=== PATIENT | male | born 1955 | race Caucasian/White ===

== ENCOUNTER → 2023-08-08 | Outpatient (BNV) | payer MEDICARE, MEDICAID, SELFPAY | PROVIDERS: Visit Provider Internal Medicine Nephrology | DX: N18.6 End stage renal disease (principal) | CPT/HCPCS: 90962 ==

== ENCOUNTER → 2023-09-06 | Outpatient (BNV) | payer MEDICARE, MEDICAID, SELFPAY | PROVIDERS: Visit Provider Internal Medicine Nephrology | DX: N18.6 End stage renal disease (principal) | CPT/HCPCS: 90961 ==

== ENCOUNTER → 2023-10-07 | Outpatient (BNV) | payer MEDICARE, MEDICAID, SELFPAY | PROVIDERS: Visit Provider Internal Medicine Nephrology | DX: N18.6 End stage renal disease (principal) | CPT/HCPCS: 90962 ==

== ENCOUNTER → 2023-11-06 | Outpatient (BNV) | payer OTHER, SELFPAY | PROVIDERS: Visit Provider Internal Medicine Nephrology | DX: N18.6 End stage renal disease (principal) | CPT/HCPCS: 90961 ==

== ENCOUNTER → 2023-12-07 | Outpatient (BNV) | payer OTHER, SELFPAY | PROVIDERS: Visit Provider Internal Medicine Nephrology | DX: N18.6 End stage renal disease (principal) | CPT/HCPCS: 90960 ==

== ENCOUNTER → 2024-01-06 | Outpatient (BNV) | payer OTHER, SELFPAY | PROVIDERS: Visit Provider Internal Medicine Nephrology | DX: N18.6 End stage renal disease (principal) | CPT/HCPCS: 90962 ==

== ENCOUNTER → 2024-02-06 | Outpatient (BNV) | payer OTHER, SELFPAY | PROVIDERS: Visit Provider Internal Medicine Nephrology | DX: N18.6 End stage renal disease (principal) | CPT/HCPCS: 90962 ==

== ENCOUNTER → 2024-03-08 | Outpatient (BNV) | payer OTHER, SELFPAY | PROVIDERS: Visit Provider Internal Medicine Nephrology | DX: N18.6 End stage renal disease (principal) | CPT/HCPCS: 90961 ==

== ENCOUNTER → 2024-04-07 | Outpatient (BNV) | payer OTHER, SELFPAY | PROVIDERS: Visit Provider Internal Medicine Nephrology | DX: N18.6 End stage renal disease (principal) | CPT/HCPCS: 90961 ==

== ENCOUNTER 2024-04-21 14:33 | Outpatient (AMB) | payer OTHER, SELFPAY ==
--- NOTE | 2024-04-21 14:18 | A.OFFVIS_ITS ---
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 Has port he is currently getting dialysis on Saturday, and Saturday. Has had fistulagram 3 times this past year and got fistula 4 yrs ago. 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 He has had a prior what appears to be a fistula placement nearly 3 years ago. It appears that it has become a composite and there was a PTFE graft placed at some point. There has been a mid graft stenosis. He has been treated for that several times and unfortunately it appears to Holly thrombosed. At the current time he has a tunneled right IJ catheter. He is being dialyzed on a Saturday regimen. He is now in need for alternative source of permanent dialysis access. Of note he is right-hand dominant. Now presents for vascular evaluation. Of note he has history of hyperlipidemia, liver cirrhosis secondary to alcohol abuse and hepatitis-C, variceal bleeding with banding, gout, hypertension and paranoid delusions. [facility] Social History (Updated 04/21/24 @ 14:40 by KALLI Kay) Patient Tobacco Use Status: Current everyday Tobacco user Cigarettes Per Day: 10 Review of Systems Const All systems reviewed & are unremarkable except as noted in HPI and below Reports no additional complaints ENT Reports Normal hearing present Card Denies chest pain, Denies chest pain at rest, Denies chest pain with activity and Denies pedal edema Resp Denies cough GI Denies abdominal pain Musc Denies abnormal gait, Denies muscle cramps and Denies radiating pain into limb Skin/Breast Denies skin ulcer and Denies wounds Neuro Reports Normal hearing present and Denies abnormal gait Psych Reports no additional complaints Physical Exam Vital Signs: BMI result Body Mass Index 24.4 Const General: cooperative, healthy appearing and comfortable Orientation/consciousness: oriented to person, oriented to place and oriented to time HEENT Head: Yes normal to inspection Neck Neck: Yes normal visual inspection Carotids: no bruits Chest Chest palpation & inspection: normal inspection of the chest Resp Effort & Inspection: normal respiratory effort and able to speak in complete sentences Auscultation: clear to auscultation bilaterally, no crackles, no rales, no rhonchi and no wheezes Cardio Rate: regular rate Rhythm: regular rhythm Heart sounds: S1 normal heart sound present and S2 normal heart sound present Bruits: no carotid bruits Peripheral pulses: Peripheral pulses 2+ throughout GI Inspection: Yes normal to inspection Skin Wounds: no wounds Hair: normal Neuro General: oriented to person, oriented to place and oriented to time Cranial nerves: Yes CN's II-XII intact bilaterally and Yes Normal hearing present Cognition (Neuro): normal cognition Motor exam (neuro): 5/5 motor strength present throughout Extrem Other: Left upper extremity palpable brachial radial and ulnar pulse. I do appreciate the graft and he does have a large incision on the dorsal aspect of the arm the hybrid fistula/graft is on the volar surface. There was no flow through that on bedside ultrasound there is only proximal and distal pulsatile flow. General: No clubbing, No cyanosis and No edema Psych Appearance: grossly normal Mental Status: mental status grossly normal Speech and movement: Normal speech and movement present Assessment & Plan Assessment & Plan (1) ESRD (end stage renal disease): Code(s): N18.6 - End stage renal disease Category: Medical Plan: In short patient has thrombosed left upper extremity graft. He has had attempts for declotting on 12/13/2023 12/26/2023. Unfortunately I do think that this may be not useful. We will may have to seek alternative sources of access. I have taken the liberty of ordering left upper extremity vein mapping. Will follow up with us after testing and we can discuss more definitive plans. Thank you for allowing us to participate in his care. Orders: Orders US venous duplex UE LT 04/21/24 N18.9 - Chronic kidney disease, unspecified Coding Level of Care Code Est Pt Level 4 (22261) Diagnoses ESRD (end stage renal disease) N18.6
[2024-04-21 14:34] VITALS: BMI 24.4
== END 2024-04-21 15:17 | disposition home or self-care (01) ==
PROVIDERS: Visit Provider Surgery Vascular Surgery
DX: N18.6 End stage renal disease (principal)
CPT/HCPCS: 99214

== ENCOUNTER → 2024-04-21 14:33 | Outpatient (BNVA) | payer OTHER, SELFPAY | PROVIDERS: Visit Provider Surgery Vascular Surgery | DX: N18.6 End stage renal disease (principal); Z99.2 Dependence on renal dialysis | CPT/HCPCS: 99212 ==

== ENCOUNTER 2024-05-08 09:50 | Outpatient (REF) | payer OTHER, SELFPAY ==
--- NOTE | ~2024-05-08 | US_ITS ---
EXAMINATION: US TRIPLEX UPPER EXTREMITY, LEFT CLINICAL INFORMATION: Left upper extremity AV mapping for dialysis access COMPARISON: None available. TECHNIQUE: Color-flow triplex imaging with spectral analysis and compression Doppler was performed on the left upper extremity. Venous mapping of the basilic and cephalic veins FINDINGS: The left brachial artery, radial artery and ulnar artery are patent on color flow Doppler. Triphasic arterial waveforms with normal velocities throughout these vessels. There is an old left forearm to upper arm AV fistula/graft which is occluded. Venous mapping measurements as follows: BASILIC: Proximal upper arm: 7 mm, depth 0.4 cm Mid upper arm are: 5 mm, depth 0.4 cm Distal upper arm: 4 mm, depth 0.4 cm CEPHALIC: Shoulder: 0.8 mm, depth 0.5 cm Proximal upper arm: 0.5 mm, depth 0.6 cm The mid upper arm: 0.6 mm, depth 0.6 cm Distal upper arm: 0.5 mm, depth 0.4 cm Antecubital fossa: 1 mm, depth 0.5 cm Proximal forearm: 4 mm, depth 0.2 cm Mid forearm: 2 mm, depth 0.5 cm Wrist: 2 mm, depth 0.3 cm US/US venous duplex UE LT IMPRESSION: 1. Patent left upper extremity arteries as described above. 2. Venous mapping measurements as described above. Electronically signed by: Hi Maurer MD 06/03/2024 12:18 PM [facility]
== END 2024-05-08 09:51 | disposition home or self-care (01) ==
LOC: HO.US 09:50
PROVIDERS: Visit Provider Surgery Vascular Surgery
DX: N18.9 Chronic kidney disease, unspecified (principal)
CPT/HCPCS: 93971

== ENCOUNTER → 2024-05-08 | Outpatient (BNV) | payer OTHER, SELFPAY | PROVIDERS: Visit Provider Internal Medicine Nephrology | DX: N18.6 End stage renal disease (principal) | CPT/HCPCS: 90961 ==

== ENCOUNTER 2024-05-19 12:31 | Outpatient (AMB) | payer OTHER, SELFPAY ==
[2024-05-19 13:03] VITALS: BP 130/74; BMI 24.4
--- NOTE | 2024-05-19 13:03 | MHC.OFFVIS ---
Vital Signs 05/19/24 13:03 Height 6 ft Weight 180 lb BMI 24.4 BP 130/74 Blood Pressure Location Rt brachial Position Sitting Intake Visit Reasons: Follow up UE Vein Map 05/08/24 Intake Note: Andriy is a 69 year old male who presents to the office today for a follow up UE Vein map 05/08/24. Pt states he is overall feeling well. Allergies No Known Allergies Allergy (Verified 05/19/24 13:04) HPI HPI Follow up UE Vein Map 05/08/24: Details: Complex 69-year-old gentleman presents for follow-up regarding dialysis access. He has had prior fistula placement nearly 3 years ago it is appears to be a composite with some sort of PTFE graft placed at some point. There has been persistent mid graft stenosis. He is currently being dialyzed through a right IJ tunneled dialysis catheter. Current dialysis regimen is Saturday. He is now for a alternative source of dialysis access. Of note he is right-hand dominant. He has a prior history of hyperlipidemia, liver cirrhosis secondary to alcohol abuse and hepatitis-C. In addition he has variceal bleeding with banding, gout, hypertension and paranoid delusions. He now presents for permanent access. [facility] Social History (Updated 04/21/24 @ 14:40 by KALLI Kay) Patient Tobacco Use Status: Current everyday Tobacco user Cigarettes Per Day: 10 Review of Systems Const All systems reviewed & are unremarkable except as noted in HPI and below Reports no additional complaints ENT Reports Normal hearing present Card Denies chest pain, Denies chest pain at rest, Denies chest pain with activity and Denies pedal edema Resp Denies cough GI Denies abdominal pain Musc Denies abnormal gait, Denies muscle cramps and Denies radiating pain into limb Skin/Breast Denies skin ulcer and Denies wounds Neuro Reports Normal hearing present and Denies abnormal gait Psych Reports no additional complaints Physical Exam Vital Signs: Last Vital Signs BP 130/74 05/19/24 13:03 BMI result Body Mass Index 24.4 Const General: cooperative, healthy appearing and comfortable Orientation/consciousness: oriented to person, oriented to place and oriented to time HEENT Head: Yes normal to inspection Neck Neck: Yes normal visual inspection Carotids: no bruits Chest Chest palpation & inspection: normal inspection of the chest Resp Effort & Inspection: normal respiratory effort and able to speak in complete sentences Auscultation: clear to auscultation bilaterally, no crackles, no rales, no rhonchi and no wheezes Cardio Rate: regular rate Rhythm: regular rhythm Heart sounds: S1 normal heart sound present and S2 normal heart sound present Bruits: no carotid bruits Peripheral pulses: Peripheral pulses 2+ throughout GI Inspection: Yes normal to inspection Skin Wounds: no wounds Hair: normal Neuro General: oriented to person, oriented to place and oriented to time Cranial nerves: Yes CN's II-XII intact bilaterally and Yes Normal hearing present Cognition (Neuro): normal cognition Motor exam (neuro): 5/5 motor strength present throughout Extrem Other: venous exam: No significant superficial varicosities or spider telangiectasias, minimal edema General: No clubbing, No cyanosis and No edema Psych Appearance: grossly normal Mental Status: mental status grossly normal Speech and movement: Normal speech and movement present Results Reviewed Results Reviewed: Vein mapping reviewed dated 04/07/2024. Left cephalic vein appears to be good caliber. Assessment & Plan Assessment & Plan (1) ESRD (end stage renal disease): Code(s): N18.6 - End stage renal disease Category: Medical Plan: In short patient will require left upper extremity fistula placement. Risks benefits complications were discussed in detail with the patient he understood and consented and would like to move forward. Thank you for allowing us to assist in his care. Coding Level of Care Code Est Pt Level 4 (57780) Diagnoses ESRD (end stage renal disease) N18.6
== END 2024-05-19 13:51 | disposition home or self-care (01) ==
PROVIDERS: Visit Provider Surgery Vascular Surgery
DX: N18.6 End stage renal disease (principal)
CPT/HCPCS: 99214

== ENCOUNTER → 2024-05-19 12:31 | Outpatient (BNVA) | payer OTHER, SELFPAY | PROVIDERS: Visit Provider Surgery Vascular Surgery | DX: N18.6 End stage renal disease (principal); Z99.2 Dependence on renal dialysis | CPT/HCPCS: 99212 ==

== ENCOUNTER 2024-06-08 08:55 | Day surgery (SDC) | payer OTHER, SELFPAY ==
--- NOTE | 2024-06-03 12:46 | HO.ANESPROP2 ---
Documented by User: Charlene Zepeda NP 06/03/24 12:56 HPI - Anesthesia Eval Consult details Narrative: 69yo M for Left AV Fistula Creation ESRD with HD //Sat Follows [facility] pulmo for smoking, latent TB s/p treatment. Last office visit 05/2024 Follows [facility] GI for cirrhosis 2/2 ETOH. Last office visit 03/2024, appeared compensated without ascites. Last EGD 2021 with small varices. Follows [facility] cardiology for multivessel CAD, cardiomyopathy (EF ~50 in 2021). ?medically managed for his multivessel coronary disease including chronic total obstruction of RCA and LAD with severe left circumflex disease and mild distal left main disease.? He was felt to be a poor candidate for bypass surgery given his comorbidities.? PCI was not done given he has not had any angina and dual antiplatelet therapy would put him at risk for major bleeding given his severe thrombocytopenia. Last office visit 02/2024, stable and continue same regimen Hx polysubstance, none for years including ETOH Case reviewed with Dr Carla FONSECA Active Problems Active Problems: All Active Problems ESRD (end stage renal disease) (Acute) Past Medical History Medical History Anemia Severe thrombocytopenia Ascites Other emphysema Dyspnea Fistula Paranoid delusion Metabolic acidosis Latent tuberculosis by blood test HTN (hypertension) Hepatitis C Gout Esophageal varices Chronic hyperkalemia Bradycardia Cardiomyopathy Bipolar disorder Smoker CAD (coronary artery disease) Cirrhosis ESRD (end stage renal disease) Surgical History Surgical History (Updated 06/08/24 @ 12:56 by Rylee Peguero MD) A-V fistula History of esophagogastroduodenoscopy Social History Social History Are you a primary administrator health care facility to a significant other at home: No Do you presently have visiting nurse or other home services: No Patient Tobacco Use Status: Current everyday Tobacco user Tobacco use type: Cigarette Cigarettes Per Day: 7 Years Smoked: 25 Smoked in Last 30 Days: Yes Use of substances other than those prescribed or required for medical reasons: No Have you been hit, kicked, punched, or otherwise hurt by someone within the past year? If so, by whom?: No Are you DNR?: No Advance Directives: No Advance Directives Information Provided: No Advance Directives on File: No Recently lost weight without trying: No How much weight loss: Not applicable Eating poorly because of decreased appetite: No Nutrition screen score: 0 Nutrition Risks: No Nutritional Risk Poor oral hygiene: Yes (front cracked tooth, missing teeth throughout) Meds Allergies Allergy/AdvReac Type Severity Reaction Status Date / Time No Known Allergies Allergy Verified 06/08/24 09:27 Home Medications ?Medication ?Instructions ?Recorded ?Confirmed ?Last Taken ?Type allopurinol 300 mg tablet 300 mg PO DAILY 04/21/24 06/08/24 06/08/24 History amlodipine 5 mg tablet 5 mg PO 4XW 04/21/24 06/08/24 06/08/24 History atorvastatin 20 mg tablet 20 mg PO DAILY 04/21/24 06/08/24 06/08/24 History fluorouracil 5 % topical cream 1 appl topical BID 04/21/24 06/08/24 Unknown History hydroxyzine HCl 25 mg tablet 25 mg PO TID 04/21/24 06/08/24 06/08/24 History isosorbide mononitrate 60 mg 60 mg PO DAILY 04/21/24 06/08/24 06/08/24 History tablet,extended release 24 hr nadolol 40 mg tablet 40 mg PO DAILY 04/21/24 06/08/24 06/08/24 History sucroferric oxyhydroxide 500 mg 500 mg PO TID 04/21/24 06/08/24 Unknown History chewable tablet (Velphoro) Vitamin D3 06/08/24 06/08/24 History Exam Pertinent Lab Results Pertinent Lab Results: Cardiology Labs WBC: 5.7 k/mm3 (01/13/24) RBC:?2.48 m/mm3?Low (01/13/24) Hgb:?9.1 Gm/dL?Low (01/13/24) Hct:?26.4 %?Low (01/13/24) MCV:?106.5 femtoliters?High (01/13/24) MCH:?36.7 pg?High (01/13/24) MCHC: 34.5 g/dL (01/13/24) Platelet Count:?68 k/mm3?Low (01/13/24) RDW-SD:?61.2 femtoliters?High (01/13/24) Nucleated RBC (Automated): 0 #/100 WBC'S (01/13/24) Abs. Neut: 4.2 k/mm3 (01/09/24) Abs. Lymph: 1.1 k/mm3 (01/09/24) Abs. [place]: 0.4 k/mm3 (01/09/24) Abs. Eo: 0.2 k/mm3 (01/09/24) Abs. Baso: 0 k/mm3 (01/09/24) Neut %: 70.5 % (01/09/24) [place] %: 7.3 % (01/09/24) Eos %: 3.2 % (01/09/24) Baso %: 0.2 % (01/09/24) Imm Gran: 0.3 % (01/09/24) Abs. Imm Gran: 0 k/mm3 (01/09/24) INR: 1.1 (01/13/24) Protime (PT):?12 seconds?High (01/13/24) Sodium: 134 mmol/L (01/14/24) Potassium: 4.7 mmol/L (01/14/24) Chloride:?93 mmol/L?Low (01/14/24) Bicarbonate Level: 23 mmol/L (01/14/24) Glucose Level: 88 mg/dL (01/14/24) BUN:?53 mg/dL?High (01/14/24) BUN:?64 mg/dL?High (09/25/23) Creatinine-Blood:?8.86 mg/dL?High (01/14/24) Calcium: 8.6 mg/dL (01/13/24) Protein, Total: 6.8 Gm/dL (01/09/24) Albumin: 4 Gm/dL (01/09/24) Alkaline Phosphatase: 129 units/L (01/09/24) AST (SGOT): 22 units/L (01/09/24) ALT (SGPT): 10 units/L (01/09/24) Bilirubin, Total: 0.3 mg/dL (01/09/24) Cholesterol: 94 mg/dL (06/12/23) Triglycerides: 82 mg/dL (06/12/23) HDL Cholesterol:?35 mg/dL?Low (06/12/23) LDL Cholesterol: 43 mg/dL (06/12/23) Non HDL Cholesterol: 59 mg/dL (06/12/23) Narrative Narrative: EKG 01/2024 Ventricular Rate: 53 BPM Atrial Rate: 53 BPM P-R Interval: 208 ms QRS Duration: 104 ms Q-T Interval: 476 ms QTC Calculation(Bazett): 446 ms P Milligan: 51 degrees R Milligan: -32 degrees T Milligan: 121 degrees Sinus bradycardia Left axis deviation Inferior infarct , age undetermined ST and T wave abnormality, consider lateral ischemia Abnormal ECG When compared with ECG of 25-DEC-2023 10:48, Incomplete left bundle branch block is no longer Present Confirmed by Seth Powers ([id number]) on 01/09/2024 2:08:43 PM ECHO 2021 Summary The left ventricular size is normal. The left ventricular wall thickness is upper normal. There is discrete proximal septal thickening. The left ventricular ejection fraction is 50-55 %. Basal inferior akinesis. Severe inferior, inferoseptal, anteroseptal hypokinesis. The mitral valve is normal in appearance. There is mild mitral insufficiency. The right ventricle is normal in size and function. Comparison No prior study available for comparison. RUQ US 2023 FINDINGS: Liver: Coarse hepatic echotexture and echogenic parenchyma. No suspicious lesion. Nodular hepatic contour. Main portal vein patent with normal hepatopetal direction of flow. Gallbladder: Normal appearance of the gallbladder without cholelithiasis, wall thickening, or pericholecystic free fluid. Biliary Tree: No intrahepatic or extrahepatic bile duct dilation is identified. Common duct measures: 0.6 cm. Pancreas: No abnormality in the visualized portions of the pancreas. Right kidney: 9.5 cm in length. Atrophic and hyperechoic right renal cortices with 2.4 cm simple appearing upper pole cyst, not significantly changed from prior studies. IMPRESSION: Cirrhotic morphology. No suspicious lesion. Assessment and Plan Assessment Anesthesia Assessment: Chart Reviewed Documented by User: Rylee Peguero MD 06/08/24 13:06 HPI - Anesthesia Eval Consult details Narrative: 69yo M for Left AV Fistula Creation ESRD with HD //Sat Follows [facility] pulmo for smoking, latent TB s/p treatment. Last office visit 05/2024 Follows [facility] GI for cirrhosis 2/2 ETOH. Last office visit 03/2024, appeared compensated without ascites. Last EGD 2021 with small varices. Follows [facility] cardiology for multivessel CAD, cardiomyopathy (EF ~50 in 2021). ?medically managed for his multivessel coronary disease including chronic total obstruction of RCA and LAD with severe left circumflex disease and mild distal left main disease.? He was felt to be a poor candidate for bypass surgery given his comorbidities.? PCI was not done given he has not had any angina and dual antiplatelet therapy would put him at risk for major bleeding given his severe thrombocytopenia. Last office visit 02/2024, stable and continue same regimen Hx polysubstance, none for years including ETOH Case reviewed with Dr Aguirre 06/08/24: EKG abnormality as noted. Not acute. Patient asymptomatic. Will proceed PMFSH Active Problems Active Problems: All Active Problems ESRD (end stage renal disease) (Acute). Last dialysis 2 days ago (Saturday) Smoker T wave inversion on monitor. Not acute. Denies any symptoms of Chest pain, SOB, diaphoresis. Old EKG with T wave abnormalities. Past Medical History Medical History Anemia Severe thrombocytopenia Ascites Other emphysema Dyspnea Fistula Paranoid delusion Metabolic acidosis Latent tuberculosis by blood test HTN (hypertension) Hepatitis C Gout Esophageal varices Chronic hyperkalemia Bradycardia Cardiomyopathy Bipolar disorder Smoker CAD (coronary artery disease) Cirrhosis ESRD (end stage renal disease) Family History Family history of problems with anesthesia: No Surgical History Surgical History (Updated 06/08/24 @ 12:56 by Rylee Peguero MD) A-V fistula History of esophagogastroduodenoscopy History of Problems with Anesthesia: No Social History Social History Are you a primary administrator health care facility to a significant other at home: No Do you presently have visiting nurse or other home services: No Patient Tobacco Use Status: Current everyday Tobacco user Tobacco use type: Cigarette Cigarettes Per Day: 7 Years Smoked: 25 Smoked in Last 30 Days: Yes Use of substances other than those prescribed or required for medical reasons: No Have you been hit, kicked, punched, or otherwise hurt by someone within the past year? If so, by whom?: No Are you DNR?: No Advance Directives: No Advance Directives Information Provided: No Advance Directives on File: No Recently lost weight without trying: No How much weight loss: Not applicable Eating poorly because of decreased appetite: No Nutrition screen score: 0 Nutrition Risks: No Nutritional Risk Poor oral hygiene: Yes (front cracked tooth, missing teeth throughout) Meds Allergies Allergy/AdvReac Type Severity Reaction Status Date / Time No Known Allergies Allergy Verified 06/08/24 09:27 Home Medications ?Medication ?Instructions ?Recorded ?Confirmed ?Last Taken ?Type allopurinol 300 mg tablet 300 mg PO DAILY 04/21/24 06/08/24 06/08/24 History amlodipine 5 mg tablet 5 mg PO 4XW 04/21/24 06/08/24 06/08/24 History atorvastatin 20 mg tablet 20 mg PO DAILY 04/21/24 06/08/24 06/08/24 History fluorouracil 5 % topical cream 1 appl topical BID 04/21/24 06/08/24 Unknown History hydroxyzine HCl 25 mg tablet 25 mg PO TID 04/21/24 06/08/24 06/08/24 History isosorbide mononitrate 60 mg 60 mg PO DAILY 04/21/24 06/08/24 06/08/24 History tablet,extended release 24 hr nadolol 40 mg tablet 40 mg PO DAILY 04/21/24 06/08/24 06/08/24 History sucroferric oxyhydroxide 500 mg 500 mg PO TID 04/21/24 06/08/24 Unknown History chewable tablet (Velphoro) Vitamin D3 06/08/24 06/08/24 History Exam Height,Weight and Vital Signs: Height 6 ft Weight 86.999 kg Vital Signs Temp Pulse Resp BP Pulse Ox O2 Del Method 06/08/24 10:00 98.4 F 51 16 172/81 H 97 Room Air Pertinent Lab Results Pertinent Lab Results: Cardiology Labs WBC: 5.7 k/mm3 (01/13/24) RBC:?2.48 m/mm3?Low (01/13/24) Hgb:?9.1 Gm/dL?Low (01/13/24) Hct:?26.4 %?Low (01/13/24) MCV:?106.5 femtoliters?High (01/13/24) MCH:?36.7 pg?High (01/13/24) MCHC: 34.5 g/dL (01/13/24) Platelet Count:?68 k/mm3?Low (01/13/24) RDW-SD:?61.2 femtoliters?High (01/13/24) Nucleated RBC (Automated): 0 #/100 WBC'S (01/13/24) Abs. Neut: 4.2 k/mm3 (01/09/24) Abs. Lymph: 1.1 k/mm3 (01/09/24) Abs. [place]: 0.4 k/mm3 (01/09/24) Abs. Eo: 0.2 k/mm3 (01/09/24) Abs. Baso: 0 k/mm3 (01/09/24) Neut %: 70.5 % (01/09/24) [place] %: 7.3 % (01/09/24) Eos %: 3.2 % (01/09/24) Baso %: 0.2 % (01/09/24) Imm Gran: 0.3 % (01/09/24) Abs. Imm Gran: 0 k/mm3 (01/09/24) INR: 1.1 (01/13/24) Protime (PT):?12 seconds?High (01/13/24) Sodium: 134 mmol/L (01/14/24) Potassium: 4.7 mmol/L (01/14/24) Chloride:?93 mmol/L?Low (01/14/24) Bicarbonate Level: 23 mmol/L (01/14/24) Glucose Level: 88 mg/dL (01/14/24) BUN:?53 mg/dL?High (01/14/24) BUN:?64 mg/dL?High (09/25/23) Creatinine-Blood:?8.86 mg/dL?High (01/14/24) Calcium: 8.6 mg/dL (01/13/24) Protein, Total: 6.8 Gm/dL (01/09/24) Albumin: 4 Gm/dL (01/09/24) Alkaline Phosphatase: 129 units/L (01/09/24) AST (SGOT): 22 units/L (01/09/24) ALT (SGPT): 10 units/L (01/09/24) Bilirubin, Total: 0.3 mg/dL (01/09/24) Cholesterol: 94 mg/dL (06/12/23) Triglycerides: 82 mg/dL (06/12/23) HDL Cholesterol:?35 mg/dL?Low (06/12/23) LDL Cholesterol: 43 mg/dL (06/12/23) Non HDL Cholesterol: 59 mg/dL (06/12/23) Lab Results 06/08/24 Range/Units 09:37 WBC 6.0 (4.8-10.8) X10*3/uL RBC 2.86 L (4.60-5.80) X10*6/uL Hgb 9.7 L (14.0-18.0) g/dl Hct 29.3 L (42.0-52.0) % MCV 102.4 H (80.0-98.0) fL MCH 33.9 H (27.0-33.0) pg MCHC 33.1 (31.0-36.0) g/dl RDW 15.3 (11.0-16.0) % Plt Count 70 L (160-400) X10*3/uL MPV 10.8 (9.4-12.4) fL Absolute Nucleated RBC 0.000 (0.0-0.012) X10*3/uL Nucleated RBC % (auto) 0.0 (0.0-0.2) /100WBC PT 13.9 H (10.9-12.4) SEC INR 1.2 H (0.9-1.1) Sodium 138 (135-145) mmol/L Potassium 4.9 (3.3-5.1) mmol/L Chloride 98 (96-108) mmol/L Carbon Dioxide 29 (22-29) mmol/L Anion Gap 16 (12-20) Airway Mallampati Class: III TM Dist: >3cm Neck ROM: Full Loose/Missing/Broken Teeth: Yes (Top front tooth broken. Some missing teeth all over. Denies loose teeth) Heart: RRR Lungs: CTAB Assessment and Plan Assessment Anesthesia Assessment: Anesthesia Plan Discussed and Chart Reviewed Final Anesthetic Review Family History of Problems with Anesthesia: No History of Problems with Anesthesia: No NPO: Yes ASA Class: III Final Preanesthetic Review: No Changes in Pt Med Stat, Meds/Allgs Chart Reviewed, Consent Obtained/Reviewed and Anes Risks/Benef Reviewed Patient Risk: Intermediate Procedure Risk: Low Assessment/Block/Sedation in SS: Assess/Block/Sedation-SS Anesthetic Plan Anesthetic Plan: GA Disposition: Standard PACU
[2024-06-08] VITALS (10 sets, daily range): BP systolic 124–172; BP diastolic 67–83; PULSE 51–63; RESP 16–20; TEMP 36.3–36.9; O2SAT 92–97; BMI 26.0
--- NOTE | 2024-06-08 07:40 | MHC.SHP ---
Pre-Procedural Eval Section A - 24 Hr Update-Section A only Date of Service: 06/08/24 The patient is an INPATIENT: No Changes since office visit: Yes Patient answered all questions The patient has been examined within 24 hours of the surgical procedure. The History & Physical has been completed within 30 days and I have reviewed it.: Yes Section B - Complete if H&P > 30 days Chief Complaint: End stage renal disease Allergies: Allergies Allergy/AdvReac Type Severity Reaction Status Date / Time No Known Allergies Allergy Verified 05/19/24 13:04 Plan I have reviewed the history and physical and performed a pertinent physical examination on my patient. No changes have occurred unless specified. Time Spent With Patient Time: Total time managing care of this patient today ____ minutes.
--- NOTE | 2024-06-08 09:33 | PC.NURSE ---
Patient in preop. SB with inverted T wave present on monitor. Last EKG from January 2024. Dr. Peguero made aware and sent pictures of rhythm strip and last EKG via tiger text. EKG shows SB with inverted T waves present on V5 abd V6. Patient asymptomatic. Per her, no repeat EKG necessary. May proceed with surgery.
[2024-06-08 09:55] LABS: Hematocrit 29.3 % (42.0-52.0); Hemoglobin 9.7 g/dl (14.0-18.0); Mean Corpuscular HGB Conc 33.1 g/dl (31.0-36.0); Mean Corpuscular Hemoglobin 33.9 pg (27.0-33.0); Mean Corpuscular Volume 102.4 fL (80.0-98.0); Mean Platelet Volume 10.8 fL (9.4-12.4); Platelet Count 70 X10*3/uL (160-400); Red Blood Count 2.86 X10*6/uL (4.60-5.80); Red Cell Distribution Width 15.3 % (11.0-16.0)
[2024-06-08 10:01] LABS: INTERNATIONAL NORM RATIO 1.2 (0.9-1.1); Prothrombin Time 13.9 SEC (10.9-12.4)
[2024-06-08] MEDS: 0.9 % Sodium Chloride 1,000 ML 100 ML IVCONT (10:08)
[2024-06-08 10:16] LABS: Anion Gap 16 (12-20); Carbon Dioxide 29 mmol/L (22-29); Chloride 98 mmol/L (96-108); Potassium 4.9 mmol/L (3.3-5.1); Sodium 138 mmol/L (135-145)
--- NOTE | 2024-06-08 13:33 | W.PM.OPN ---
Operative Note Operative Note Date of Service: 06/08/24 Narrative: Operative note by [facility] Preoperative diagnosis: End-stage renal disease Postoperative diagnosis: Same Procedure: Left arm fistula creation (direct basilic brachial 1st stage) Surgeon:Evgeny Sena M.D. Boating Safety Officer: Amaya ENGEL Anesthesia: Gentleman Specimens: None Drains: None Estimated blood loss: Minimal Indications: Pleasant 69-year-old gentleman presents for fistula creation. He had a prior forearm fistula created. It had subsequently gone on to fail. He has undergone vein mapping was noted to have reasonable cephalic and basilic vein in the upper arm. The patient has signed the informed consent after reviewing risks, complications, benefits, and alternatives previously discussed with the patient. The patient was given the opportunity to ask any additional questions or voice any concerns. All questions were answered to the patient's satisfaction. Procedure in detail: Patient was brought to the operating room prior to which a time-out was called for patient identification site verification. Left upper extremity was prepped and draped in standard surgical fashion. We had marked out the basilic vein cephalic vein and brachial artery with ultrasound prior to prepping. Once this was accomplished we made a transverse incision a proximally 2 fingerbreadths above the antecubital fossa. We tried to dissect down and identify the cephalic vein. We were unable do so. We then turned our attention to the basilic vein. We were able to easily identify this and isolate this with silastic loops. Once this was accomplished we then turned our attention to the artery brachial artery. This was once again isolated with silastic loops as well. We then administered 3000 units of systemic heparin. After 5 minutes of circulation time we then transected the basilic vein at its distal most point. Once this was accomplished we clamped the proximal portion with a bulldog. We dilated this with heparin. We then used a Arellano scissor to open up and fashion a tamez. Once this was all accomplished we isolated that brachial artery. We then placed vessel loops. Once this was all accomplished we clamped this and made an arteriotomy. We circumferentially anastomosed the basilic vein using a 6 0 Prolene suture. Once this was all accomplished adequate hemostasis was achieved. Deep layer was reapproximated using 2-0 Polysorb superficial layer with 3-0 poly Sorb and finally skin with a 4-0 Monocryl. Steri-Strips and a sterile dressing were applied. At the end the case sponge instrument counts were correct. Patient tolerated the procedure well. Returned to recovery with stable vitals and an intact radial and ulnar pulse. This note is constructed using voice recognition software. While every effort has been made to ensure accuracy, automated teller manager errors may have been included. Thank you for allowing me to participate in the care of your patient. Yours sincerely, Evgeny Sena MD, FACS, R.P.V.I.
[2024-06-08] MEDS: ondansetron HCL 4 MG/2 ML VIAL IVPUSH (14:29)
== END 2024-06-08 16:06 | disposition home or self-care (01) ==
PROVIDERS: Nurse Practitioner; Visit Provider Surgery Vascular Surgery
PROC: (CPT 36819; principal; 2024-06-08 10:30)
DX: I12.0 Hypertensive chronic kidney disease with stage 5 chronic kidney disease or end stage renal disease (principal); N18.6 End stage renal disease; Z99.2 Dependence on renal dialysis; E78.5 Hyperlipidemia, unspecified; K74.69 Other cirrhosis of liver; F10.10 Alcohol abuse, uncomplicated; F22 Delusional disorders; I85.01 Esophageal varices with bleeding; B19.20 Unspecified viral hepatitis C without hepatic coma; M10.9 Gout, unspecified; F17.210 Nicotine dependence, cigarettes, uncomplicated
CPT/HCPCS: 36819; 36415; 80051; 85027; 85610; A4649; J0131; J0690; J1596; J1644; J2003; J2250; J2405; J2704; J2795; J3010

== ENCOUNTER → 2024-06-08 08:55 | Outpatient (BNV) | payer OTHER, SELFPAY | PROVIDERS: Visit Provider Surgery Vascular Surgery | DX: N18.6 End stage renal disease (principal) | CPT/HCPCS: 36821 ==

== ENCOUNTER 2024-06-23 08:52 | Outpatient (AMB) | payer OTHER, SELFPAY ==
--- NOTE | 2024-06-23 09:13 | A.OFFVIS_ITS ---
Intake Visit Reasons: 2 week follow up s/p L arm fistula 06/08/24 Intake Note: follow up Left Arm fistula creation 06/08/24, no complaints Accompanied by: Self / Same As Patient Allergies No Known Allergies Allergy (Verified 06/23/24 09:19) HPI HPI 2 week follow up s/p L arm fistula 06/08/24: Details: Very pleasant 69-year-old gentleman presents for surveillance follow-up after left arm fistula creation. We had attempted a left brachiocephalic fistula but the cephalic vein appeared to be too small in caliber. We subsequently created a first-stage brachial basilic connection. He now presents for routine follow- up. Of note he denies any pain or discomfort in the hand. Digits are warm and well perfused. [facility] Medical History Anemia Severe thrombocytopenia Ascites Other emphysema Dyspnea Fistula Paranoid delusion Metabolic acidosis Latent tuberculosis by blood test HTN (hypertension) Hepatitis C Gout Esophageal varices Chronic hyperkalemia Bradycardia Cardiomyopathy Bipolar disorder Smoker CAD (coronary artery disease) Cirrhosis ESRD (end stage renal disease) Surgical History A-V fistula History of esophagogastroduodenoscopy Social History Are you a primary livestock caretaker to a significant other at home: No Do you presently have visiting nurse or other home services: No Patient Tobacco Use Status: Current everyday Tobacco user Tobacco use type: Cigarette Cigarettes Per Day: 7 Years Smoked: 25 Review of Systems Const All systems reviewed & are unremarkable except as noted in HPI and below Reports no additional complaints ENT Reports Normal hearing present Card Denies chest pain, Denies chest pain at rest, Denies chest pain with activity and Denies pedal edema Resp Denies cough GI Denies abdominal pain Musc Denies abnormal gait, Denies muscle cramps and Denies radiating pain into limb Skin/Breast Denies skin ulcer and Denies wounds Neuro Reports Normal hearing present and Denies abnormal gait Psych Reports no additional complaints Physical Exam Const General: cooperative, healthy appearing and comfortable Orientation/consciousness: oriented to person, oriented to place and oriented to time HEENT Head: Yes normal to inspection Neck Neck: Yes normal visual inspection Carotids: no bruits Chest Chest palpation & inspection: normal inspection of the chest Resp Effort & Inspection: normal respiratory effort and able to speak in complete sentences Auscultation: clear to auscultation bilaterally, no crackles, no rales, no rhonchi and no wheezes Cardio Rate: regular rate Rhythm: regular rhythm Heart sounds: S1 normal heart sound present and S2 normal heart sound present Bruits: no carotid bruits Peripheral pulses: Peripheral pulses 2+ throughout GI Inspection: Yes normal to inspection Skin Wounds: no wounds Hair: normal Neuro General: oriented to person, oriented to place and oriented to time Cranial nerves: Yes CN's II-XII intact bilaterally and Yes Normal hearing present Cognition (Neuro): normal cognition Motor exam (neuro): 5/5 motor strength present throughout Extrem Other: Left arm palpable brachial radial ulnar pulses. On direct ultrasound basilic vein has dilated nicely. General: No clubbing, No cyanosis and No edema Psych Appearance: grossly normal Mental Status: mental status grossly normal Speech and movement: Normal speech and movement present Assessment & Plan Assessment & Plan (1) ESRD (end stage renal disease): Comment: HD on /Sat Code(s): N18.6 - End stage renal disease Category: Medical Plan: In short patient has done well on his 1st stage left arm fistula creation he will require the 2nd stage. This will be a left arm fistula creation. Risks benefits complications including but not limited to bleeding infection steal were discussed in detail with the patient. Understood and consented would like to move forward. We will schedule as soon as possible. Thank you for allowing us to assist in his care. Coding Level of Care Code Est Pt Level 4 (94920) Diagnoses ESRD (end stage renal disease) N18.6
== END 2024-06-23 09:38 | disposition home or self-care (01) ==
PROVIDERS: Visit Provider Surgery Vascular Surgery
DX: N18.6 End stage renal disease (principal)
CPT/HCPCS: 99024

== ENCOUNTER → 2024-06-23 08:52 | Outpatient (BNVA) | payer OTHER, SELFPAY | PROVIDERS: Visit Provider Surgery Vascular Surgery | DX: N18.6 End stage renal disease (principal) | CPT/HCPCS: 99212 ==

== ENCOUNTER → 2024-07-06 05:38 | Outpatient (BNV) | payer OTHER, SELFPAY | PROVIDERS: Visit Provider Surgery Vascular Surgery | DX: N18.6 End stage renal disease (principal) | CPT/HCPCS: 36832; 99024 ==

== ENCOUNTER 2024-07-06 14:30 | Outpatient (BNV) | payer OTHER, SELFPAY | END 2024-07-06 17:46 | PROVIDERS: Admitting Provider Physician Assistant Surgical; Visit Provider Nuclear Medicine | DX: N18.6 End stage renal disease (principal) | CPT/HCPCS: 73200 ==

== ENCOUNTER 2024-07-06 14:30 | Inpatient (IN) | payer OTHER, SELFPAY ==
[2024-07-06] VITALS (16 sets, daily range): BP systolic 99–152; BP diastolic 56–83; PULSE 48–60; RESP 14–18; TEMP 36–36.8; O2SAT 94–100; BMI 23.9; BMI 25.1
--- NOTE | ~2024-07-06 | CT_ITS ---
CLINICAL HISTORY: pain swelling...left arm fistula creation today CT left upper arm without contrast Comparison: None Findings: Limited examination without IV contrast. No fractures or dislocations. No significant arthritic change. A vascular graft is visualized. There is soft tissue edema and emphysema. There is a 2.4 x 4.9 cm hypodense area in the biceps series 6, image 82. Normal visualized left chest. Impression: Soft tissue edema, emphysema and a hypodense area in the biceps. The findings could represent postsurgical changes. Hematoma and infection can not be excluded by the current examination. This document has been electronically signed by: Rodo Lee MD on 07/06/2024 19:06:27
[2024-07-06] MEDS: 0.9 % Sodium Chloride 1,000 ML 20 ML IVCONT (06:51)
--- NOTE | 2024-07-06 07:36 | PC.NURSE ---
Dr. [place] and Dr. Sena aware that patient was at [facility] 06/24-06/30 for ?GI bleed, ?pneumonia, and blood transfusions. EGd completed while admitted with no findings per patient. And that patient had full cycle of dialysis on Saturday. Labs ordered and will wait for results.
[2024-07-06 07:47] LABS: Anion Gap 18 (12-20); Carbon Dioxide 27 mmol/L (22-29); Chloride 98 mmol/L (96-108); Sodium 138 mmol/L (135-145)
--- NOTE | 2024-07-06 07:54 | MHC.SHP ---
Pre-Procedural Eval Section A - 24 Hr Update-Section A only Date of Service: 07/06/24 The patient is an INPATIENT: No Changes since office visit: Yes Patient answered all questions The patient has been examined within 24 hours of the surgical procedure. The History & Physical has been completed within 30 days and I have reviewed it.: Yes Section B - Complete if H&P > 30 days Chief Complaint: End stage renal disease Allergies: Allergies Allergy/AdvReac Type Severity Reaction Status Date / Time No Known Allergies Allergy Verified 07/06/24 06:01 Plan I have reviewed the history and physical and performed a pertinent physical examination on my patient. No changes have occurred unless specified. Time Spent With Patient Time: Total time managing care of this patient today ____ minutes.
--- NOTE | 2024-07-06 07:56 | PC.NURSE ---
labs wnl and both doctors aware and okay to proceed. Dr. Montana reviewed all printed notes from [facility].
--- NOTE | 2024-07-06 09:27 | P.CONAN_ITS ---
HPI - Anesthesia Eval Consult details Narrative: left AVF creation PMFSH Active Problems Active Problems: All Active Problems ESRD (end stage renal disease) (Acute) Past Medical History Medical History Anemia Severe thrombocytopenia Ascites Other emphysema Dyspnea Fistula Paranoid delusion Metabolic acidosis Latent tuberculosis by blood test HTN (hypertension) Hepatitis C Gout Esophageal varices Chronic hyperkalemia Bradycardia Cardiomyopathy Bipolar disorder Smoker CAD (coronary artery disease) Cirrhosis ESRD (end stage renal disease) Family History Family history of problems with anesthesia: No Surgical History Surgical History A-V fistula History of esophagogastroduodenoscopy History of Problems with Anesthesia: No Social History Social History Household Members Other:: watching his brother's home right now. Sister checks on him Are you a primary child day care teacher to a significant other at home: No Do you presently have visiting nurse or other home services: No Patient Tobacco Use Status: Current everyday Tobacco user Tobacco use type: Cigarette Cigarettes Per Day: 7 Years Smoked: 25 Smoked in Last 30 Days: Yes Patient Interested in Nicotine Replacement: No Have you been hit, kicked, punched, or otherwise hurt by someone within the past year? If so, by whom?: No Are you DNR?: No Advance Directives: No Advance Directives Information Provided: Yes Recently lost weight without trying: No Nutrition Risks: No Nutritional Risk Meds Allergies Allergy/AdvReac Type Severity Reaction Status Date / Time No Known Allergies Allergy Verified 07/06/24 06:01 Active Medications: Current Medications Sodium Chloride (Ns) 1,000 mls @ 0 mls/hr IVCONT .Q0M [facility] Last Admin: 07/06/24 06:51 Dose: 20 mls/hr Home Medications ?Medication ?Instructions ?Recorded ?Confirmed ?Last Taken ?Type allopurinol 300 mg tablet 300 mg PO DAILY 04/21/24 07/06/24 06/08/24 History amlodipine 5 mg tablet 5 mg PO 4XW 04/21/24 07/06/24 07/06/24 History atorvastatin 20 mg tablet 20 mg PO DAILY 04/21/24 07/06/24 07/06/24 History fluorouracil 5 % topical cream 1 appl topical BID 04/21/24 07/06/24 Unknown History hydroxyzine HCl 25 mg tablet 25 mg PO TID 04/21/24 07/06/24 06/08/24 History isosorbide mononitrate 60 mg 60 mg PO DAILY 04/21/24 07/06/24 06/08/24 History tablet,extended release 24 hr nadolol 40 mg tablet 40 mg PO DAILY 04/21/24 07/06/24 07/06/24 History sucroferric oxyhydroxide 500 mg 500 mg PO TID 04/21/24 07/06/24 Unknown History chewable tablet (Velphoro) Vitamin D3 06/08/24 06/08/24 History Exam Height,Weight and Vital Signs: Height 6 ft Weight 79.832 kg Last Vital Signs Temp 98.2 F 07/06/24 07:00 Pulse 60 07/06/24 07:00 Resp 18 07/06/24 07:00 BP 129/68 07/06/24 07:00 Pulse Ox 98 07/06/24 07:00 O2 Del Method Room Air 07/06/24 07:00 Pertinent Lab Results Pertinent Lab Results: Laboratory Tests 07/06/24 07:28 Sodium 138 Potassium 5.0 Chloride 98 Carbon Dioxide 27 Anion Gap 18 Airway Mallampati Class: II (broken, missing teeth) TM Dist: <=3cm Loose/Missing/Broken Teeth: Yes Heart: rrr Lungs: cta Assessment and Plan Assessment Anesthesia Assessment: Anesthesia Plan Discussed Final Anesthetic Review Family History of Problems with Anesthesia: No History of Problems with Anesthesia: No NPO: Yes ASA Class: III Final Preanesthetic Review: No Changes in Pt Med Stat, Meds/Allgs Chart Reviewed, Consent Obtained/Reviewed and Anes Risks/Benef Reviewed Patient Risk: Intermediate Procedure Risk: Intermediate Anesthetic Plan Anesthetic Plan: GA Disposition: Standard PACU
--- NOTE | 2024-07-06 11:12 | W.PM.OPN ---
Operative Note Operative Note Date of Service: 07/06/24 Narrative: Operative note by [facility] Preoperative diagnosis: End-stage renal disease Postoperative diagnosis: Same Procedure:1. Attempted left arm fistula creation 2. Arterial anastomosis repair Surgeon:Evgeny Sena M.D. Cow Rider: Amaya Miranda Anesthesia: General Specimens: None Drains: None Estimated blood loss: 150 mL Indications: Very pleasant 69-year-old gentleman who had undergone previous first-stage left arm basilic vein creation was now presents for second-stage. The patient has signed the informed consent after reviewing risks, complications, benefits, and alternatives previously discussed with the patient. The patient was given the opportunity to ask any additional questions or voice any concerns. All questions were answered to the patient's satisfaction. Procedure in detail: Patient was brought to the operating room prior to which a time-out was called for patient identification and site verification. Left arm was prepped and draped in standard surgical fashion. We went through the previous incision which was about 2 cm above the antecubital fossa. We went just a little bit lateral to that. We dissected down. Interestingly we encountered or seroma had a large amount of reactive tissue. We tried to dissect down and we identified the artery eventually. This was skeletonized more proximally. We then attempted to identify the vein. This was actually smaller in caliber. As we dissected down we did find the prior previous Prolene stitch and we identified the anastomosis. At this time as we went to further dissect this down the entire tamez of the previous venous anastomosis disintegrated. This this did fall apart. And this led to an arterial rent. We were easily able to obtain proximal and distal control. At this time 3000 units of systemic heparin was administered after 5 minutes of circulation time we flushed clear and we for did a further dissection. We were able to skeletonize the artery in its entirety. This had to be manually reconstructed in a circumferential manner with interrupted 6 0 Prolene and 7 0 Prolene sutures. Once this was all accomplished we identified the previous venous anastomosis. This was actually small in caliber and had disintegrated. This was ligated with 2-0 silk ties. Once we were able to obtain adequate hemostasis snow was placed. A proximally 5 minutes of direct pressure was held and the wound was thoroughly irrigated out. Appropriate hemostasis was achieved. Tisseel sealant was placed. We then brought the incision together 1st with a 2-0 Polysorb in multiple interrupted fashion along with 3-0 Polysorb on a more for superficial layer finally skin was closed with a 4-0 Monocryl in a subcuticular manner. Steri-Strips and a sterile dressing were applied. At the end the case sponge instrument counts were correct. Patient had a good dopplerable brachial radial ulnar signal. This note is constructed using voice recognition software. While every effort has been made to ensure accuracy, administrative services specialist errors may have been included. Thank you for allowing me to participate in the care of your patient. Yours sincerely, Evgeny Sena MD, FACS, R.P.V.I.
[2024-07-06] MEDS: ondansetron HCL 4 MG/2 ML VIAL IVPUSH (13:01)
--- NOTE | 2024-07-06 14:37 | PC.NURSE ---
patient returned from discharge. Patient to be admitted. awaiting admit orderers will notified bed management.
--- NOTE | 2024-07-06 14:38 | PC.NURSE ---
PATIENT WAS IN DISCHARGE AREA STATING HE WASN'T FEELING WELL. PATIENT STATES HE LIVES ALONE AND PATIENT WAS HAVING A TRANSPORTATION COMPANY PICK HIM UP AND BRING HIM HOME. PATIENT PALE AND WEAK. FALLING ASLEEP IN WC. THIS RN HAD THE ANESTHESIOLOGIST ASSESS PATIENT AND DR. KEARNS CONTACTED DR. FROST AND PATIENT IS NOW GOING TO BE ADMITTED FOR THE NIGHT. PATIENT BROUGHT BACK TO PACU. PATIENT REQUIRED WALKER AND 2 PERSON ASSIST AT THIS TIME TO GET INTO STRETCHER. PATIENT'S PRESCRIPTION BROUGHT BACK DOWN TO PHARMACY. PATIENT'S RIDE NOTIFIED THAT PAITENT WILL BE STAYING.
--- NOTE | 2024-07-06 14:48 | PC.NURSE ---
JOHN'S SISTER CALLED AND PHONE MESSAGE LEFT.
--- NOTE | 2024-07-06 15:16 | PC.NURSE ---
bed assigned report given new #20 to right forearm inserted and patient transferred to med surg.
[2024-07-06] MEDS: oxyCODONE HCl Immed Release 5 MG TABLET PO ×2 (15:41→20:12)
--- NOTE | 2024-07-06 16:54 | HO.SKINPHOTO ---
Addendum entered by Driss Piper RN 07/06/24 17:18: ABRIL Reid take a look at the site as well. He expressed concern w the size and firmness of swelling. Wants to order a US, casi Sena. Original Note: MD Sena notified and read message @ [phone]. Documented and will cont to monitor if worsens.
--- NOTE | 2024-07-06 17:34 | HO.PM.IMCN ---
History of Present Illness Data of Consult Service Date: 07/06/24 Requesting physician: Evgeny Sena Primary Care Provider: Unknown Physician HPI Reason for consult: Left upper extremity pain and swelling 69-year-old male seen on surgical floor for complaints of worsening left bicep pain tightness and swelling. Patient underwent vascular procedure earlier this a.m.. Now with intractable pain. Asked to see for medical management of pain Review of Systems Review of Systems: Denies chest pain Denies shortness of breath Denies nausea vomiting diarrhea Denies fever chills Admits to severe left upper arm pain [facility] Medical History Anemia Severe thrombocytopenia Ascites Other emphysema Dyspnea Fistula Paranoid delusion Metabolic acidosis Latent tuberculosis by blood test HTN (hypertension) Hepatitis C Gout Esophageal varices Chronic hyperkalemia Bradycardia Cardiomyopathy Bipolar disorder Smoker CAD (coronary artery disease) Cirrhosis ESRD (end stage renal disease) Surgical History A-V fistula History of esophagogastroduodenoscopy Social History Household Members: None Household Members Other:: watching his brother's home right now. Sister checks on him Housing: House Are you a primary pharmacy care coordinator to a significant other at home: No Do you presently have visiting nurse or other home services: No Patient Tobacco Use Status: Current everyday Tobacco user Tobacco use type: Cigarette Cigarettes Per Day: 7 Years Smoked: 25 Smoked in Last 30 Days: Yes Patient Interested in Nicotine Replacement: No Substance Use Type: Marijuana Have you been hit, kicked, punched, or otherwise hurt by someone within the past year? If so, by whom?: No Do you feel safe in your current relationship?: No Current Relationship Is there a partner from a previous relationship who is making you feel unsafe now?: No Are you made to feel afraid or neglected: No Are you DNR?: No Advance Directives: No Advance Directives Information Provided: Yes Do you have a plan to hurt others: No Plan Recently lost weight without trying: No Eating poorly because of decreased appetite: No Nutrition Risks: No Nutritional Risk Meds Allergies Allergy/AdvReac Type Severity Reaction Status Date / Time No Known Allergies Allergy Verified 07/06/24 06:01 Active Medications: Current Medications Acetaminophen (Acetaminophen 325 Mg Tablet) 650 mg PO Q6H PRN PRN Reason: Pain, Mild 1-3,fever,headache Allopurinol (Allopurinol 300 Mg Tablet) 300 mg PO DAILY [facility] Amlodipine Besylate (Amlodipine Besylate 5 Mg Tablet) 5 mg PO 4XW [facility]; Protocol Atorvastatin Calcium (Atorvastatin Calcium 20 Mg Tablet) 20 mg PO DAILY [facility] Calcium Carbonate (Calcium Carbonate 750 Mg Tab.Chew) 750 mg PO Q4H PRN PRN Reason: Heartburn Hydroxyzine HCl (Hydroxyzine Hcl 25 Mg Tablet) 25 mg PO TID [facility] Isosorbide Mononitrate (Isosorbide Mononitrate 60 Mg Tab.Er.24h) 60 mg PO DAILY [facility]; Protocol Magnesium Hydroxide (Milk Of Magnesia 30 Ml Oral.Susp) 30 ml PO DAILY PRN PRN Reason: Constipation Melatonin (Melatonin 3 Mg Tablet) 6 mg PO BEDTIME PRN PRN Reason: Insomnia Morphine Sulfate (Morphine Sulfate 4 Mg/Ml Cartridge) 4 mg IVPUSH Q4H PRN; Protocol PRN Reason: Pain, Severe (Pain Scale 7-10) Nadolol (Nadolol 40 Mg Tablet) 40 mg PO DAILY [facility]; Protocol Non-Formulary Medication (Fluorouracil) 1 appl TOPICAL BID [facility] Non-Formulary Medication (Sucroferric Oxyhydroxide [Velphoro]) 500 mg PO TID [facility] Oxycodone HCl (Oxycodone Hcl Immed Release 5 Mg Tablet) 5 mg PO Q4H PRN PRN Reason: Pain, Moderate(Pain Scale 4-6) Last Admin: 07/06/24 15:41 Dose: 5 mg Home Medications ?Medication ?Instructions ?Recorded ?Confirmed ?Last Taken ?Type allopurinol 300 mg tablet 300 mg PO DAILY 04/21/24 07/06/24 06/08/24 History amlodipine 5 mg tablet 5 mg PO 4XW 04/21/24 07/06/24 07/06/24 History atorvastatin 20 mg tablet 20 mg PO DAILY 04/21/24 07/06/24 07/06/24 History fluorouracil 5 % topical cream 1 appl topical BID 04/21/24 07/06/24 Unknown History hydroxyzine HCl 25 mg tablet 25 mg PO TID 04/21/24 07/06/24 06/08/24 History isosorbide mononitrate 60 mg 60 mg PO DAILY 04/21/24 07/06/24 06/08/24 History tablet,extended release 24 hr nadolol 40 mg tablet 40 mg PO DAILY 04/21/24 07/06/24 07/06/24 History sucroferric oxyhydroxide 500 mg 500 mg PO TID 04/21/24 07/06/24 Unknown History chewable tablet (Velphoro) Vitamin D3 06/08/24 06/08/24 History Physical Exam Vital Signs and Narrative: Vital Signs: Last Vital Signs Temp 97.0 F 07/06/24 15:45 Pulse 51 07/06/24 15:45 Resp 14 07/06/24 15:45 BP 144/77 H 07/06/24 15:45 Pulse Ox 95 07/06/24 15:45 O2 Del Method Nasal Cannula 07/06/24 15:45 O2 Flow Rate 2 07/06/24 15:45 BMI result Body Mass Index 25.1 Const: Other: Awake alert uncomfortable appearing Resp: Other: Clear to auscultation bilaterally no rales rhonchi or wheezes Cardio: Other: No S4; positive S1-S2; no S3 murmurs rubs or gallops GI: Other: Soft nontender nondistended normoactive bowel sounds Extrem: Other: Exquisitely tender left bicep region with marked swelling compared to right upper extremity. Radial pulse present on left Results Labs 07/06/24 07:28 Labs: Laboratory Results - last 24 hr 07/06/24 07/06/24 07:28 Unknown Anion Gap 18 Blood Type Cancelled Antibody Screen Cancelled Assessment and Plan (1) Edema of left upper extremity: Status: Acute (2) ESRD (end stage renal disease): Status: Acute Plan 69-year-old male with history of hypertension alcoholic cirrhosis with portal hypertension and ESRD complaining of increased pain and swelling left upper extremity. Vascular notes reviewed 1. Left upper extremity swelling (after procedure) -good left radial pulse -concern for bleeding given exquisite tenderness -medicate for pain with morphine -CT left upper extremity 2. ESRD -dialysis through tunneled cath as ordered 3. Hypertension -acceptable control on current therapies We will follow
--- NOTE | 2024-07-06 18:08 | PHA.MEDREC ---
Addendum entered by Samira Marroquin [facility] 07/06/24 18:38: reviewed Original Note: Pharmacy Consult ? Medication Reconciliation Pharmacy has reviewed the medication reconciliation done by nursing. spoke to patient to confirm med list. Patient states he take Amlodipine Saturday, Saturday, Saturday and Saturday. nothing on dialysis days. Patient states he takes 4 tablets of Vitamin D3 2,000 mg daily.
[2024-07-06] MEDS: Morphine Sulfate 4 MG/ML CARTRIDGE IVPUSH (18:22)
[2024-07-06] MEDS: hydrOXYzine HCL 25 MG TABLET PO (20:14)
[2024-07-07 00:03] VITALS: BP 149/76; PULSE 51; RESP 16; TEMP 36.2; O2SAT 98
[2024-07-07] MEDS: Morphine Sulfate 4 MG/ML CARTRIDGE IVPUSH ×2 (00:07→06:15)
--- NOTE | 2024-07-07 01:10 | PC.NURSE ---
late entry 07/06 2230; Dr. Olivas made aware patient with pain, swelling of left upper extremity. Dressing with good amount of staining but intact, tigertext to Dr. Olivas if patient should have labs done at this time, per hospitalist, order for cbc for am. Also made aware of imaging results of left upper extremity. Patient medicated for pain per sep.
[2024-07-07] MEDS: hydrOXYzine HCL 25 MG TABLET PO ×2 (03:22→09:51)
[2024-07-07] MEDS: oxyCODONE HCl Immed Release 5 MG TABLET PO ×2 (03:22→08:48)
--- NOTE | 2024-07-07 03:34 | PC.NURSE ---
Patient complaining of itchy skin, prn atarax administered for itching. Patient reporting it helps some but still feeling itchy and scratching skin on arms causing it to bleed. Dr. Olivas notified, patient looking for an alternate medication for itching.
[2024-07-07 03:48] VITALS: BP 156/76; PULSE 52; RESP 16; TEMP 36.2; O2SAT 93
[2024-07-07 06:31] LABS: Basophils Percent Auto 0.2 % (0-2); Eosinophils Percent Auto 0.1 % (0-4); Hemoglobin 8.3 g/dl (14.0-18.0); Imm Gran Abs Auto 0.03 X10*3/uL (0.00-0.03); Imm Gran Pct Auto 0.3 % (0.0-0.4); Lymphocytes Absolute Auto 1.4 X10*3/uL (1.2-4.9); Lymphocytes Percent Auto 12.7 % (20-40); MANUAL DIFF FLAG NO; Mean Corpuscular HGB Conc 33.2 g/dl (31.0-36.0); Mean Corpuscular Hemoglobin 34.2 pg (27.0-33.0); Mean Corpuscular Volume 102.9 fL (80.0-98.0); Mean Platelet Volume 11.4 fL (9.4-12.4); Monocytes Absolute Auto 0.6 X10*3/uL (0.1-1.2); Monocytes Percent Auto 5.4 % (2-11); Neutrophils Absolute Auto 8.8 x10*3/uL (2.0-8.3); Neutrophils Percent Auto 81.3 % (45-73); Platelet Count 102 X10*3/uL (160-400); Red Blood Count 2.43 X10*6/uL (4.60-5.80); Red Cell Distribution Width 14.9 % (11.0-16.0); White Blood Count 10.8 X10*3/uL (4.8-10.8)
[2024-07-07 08:00] VITALS: BP 174/72; PULSE 73; RESP 16; TEMP 37.1; O2SAT 93
[2024-07-07] MEDS: Atorvastatin Calcium 20 MG TABLET PO (08:47)
[2024-07-07] MEDS: allopurinoL 300 MG TABLET PO (08:47)
[2024-07-07] MEDS: Isosorbide Mononitrate 60 MG TAB.ER.24H PO (08:47)
--- NOTE | 2024-07-07 09:57 | HO.POSTANES ---
Post Anesthesia Evaluation Post Anesthesia Evaluation Date of Service: 07/07/24 Vital Signs: Vital Signs Temp Pulse Resp BP Pulse Ox O2 Del Method 07/07/24 08:00 98.8 F 73 16 174/72 H 93 Room Air 07/07/24 03:48 97.1 F 52 16 156/76 H 93 Room Air 07/07/24 00:03 97.2 F 51 16 149/76 H 98 Room Air Anesthesia: General Mental Status: Awake Pain Control: Satisfactory Nausea/Vomiting: None Hydration: Adequate Anesthesia-Related Issues: No Anes. Related Issues
--- NOTE | 2024-07-07 10:33 | PM.CNNEP ---
History of Present Illness Reason for Consult Consult date: 07/07/24 Reason for consult: End stage renal disease Chief Complaint Chief complaint: S/P ATTEMPTED LEFT FISTULA REVISION History of Present Illness Narrative: 69-year-old man with end stage renal disease on maintenance hemodialysis Usually undergoes dialysis at [facility]. He has been followed by my associate Dr. Morales. He has been admitted for revision of AV fistula. He due for dialysis today and hence this consultation Review of Systems Constitutional: Denies fever(s) and Denies weight loss Cardiovascular: Denies chest pain Respiratory: Denies cough and Denies hemoptysis Gastrointestinal: Denies abdominal pain, Denies diarrhea and Denies nausea Musculoskeletal: Denies back pain Denies focal weakness PMFSH Past Medical History Medical History Anemia Severe thrombocytopenia Ascites Other emphysema Dyspnea Fistula Paranoid delusion Metabolic acidosis Latent tuberculosis by blood test HTN (hypertension) Hepatitis C Gout Esophageal varices Chronic hyperkalemia Bradycardia Cardiomyopathy Bipolar disorder Smoker CAD (coronary artery disease) Cirrhosis ESRD (end stage renal disease) Surgical History Surgical History A-V fistula History of esophagogastroduodenoscopy Social History Social History Household Members: None Household Members Other:: watching his brother's home right now. Sister checks on him Housing: House Are you a primary critical care specialist to a significant other at home: No Do you presently have visiting nurse or other home services: No Patient Tobacco Use Status: Current everyday Tobacco user Tobacco use type: Cigarette Cigarettes Per Day: 7 Years Smoked: 25 Smoked in Last 30 Days: Yes Patient Interested in Nicotine Replacement: No Substance Use Type: Marijuana Currently Displaying Signs/Symptoms of Drug Intoxication Withdrawal: No Have you been hit, kicked, punched, or otherwise hurt by someone within the past year? If so, by whom?: No Do you feel safe in your current relationship?: No Current Relationship Is there a partner from a previous relationship who is making you feel unsafe now?: No Are you made to feel afraid or neglected: No Are you DNR?: No Advance Directives: No Advance Directives Information Provided: Yes Do you have a plan to hurt others: No Plan Recently lost weight without trying: No Eating poorly because of decreased appetite: No Nutrition Risks: No Nutritional Risk Meds Allergies Allergy/AdvReac Type Severity Reaction Status Date / Time No Known Allergies Allergy Verified 07/06/24 06:01 Active Medications: Current Medications Acetaminophen (Acetaminophen 325 Mg Tablet) 650 mg PO Q6H PRN PRN Reason: Pain, Mild 1-3,fever,headache Allopurinol (Allopurinol 300 Mg Tablet) 300 mg PO DAILY [facility] Last Admin: 07/07/24 08:47 Dose: 300 mg Amlodipine Besylate (Amlodipine Besylate 5 Mg Tablet) 5 mg PO SuMoWeFr@0900 [facility]; Protocol Atorvastatin Calcium (Atorvastatin Calcium 20 Mg Tablet) 20 mg PO DAILY [facility] Last Admin: 07/07/24 08:47 Dose: 20 mg Calcium Carbonate (Calcium Carbonate 750 Mg Tab.Chew) 750 mg PO Q4H PRN PRN Reason: Heartburn Hydroxyzine HCl (Hydroxyzine Hcl 25 Mg Tablet) 25 mg PO TID PRN PRN Reason: Itching Last Admin: 07/07/24 09:51 Dose: 25 mg Isosorbide Mononitrate (Isosorbide Mononitrate 60 Mg Tab.Er.24h) 60 mg PO DAILY [facility]; Protocol Last Admin: 07/07/24 08:47 Dose: 60 mg Magnesium Hydroxide (Milk Of Magnesia 30 Ml Oral.Susp) 30 ml PO DAILY PRN PRN Reason: Constipation Melatonin (Melatonin 3 Mg Tablet) 6 mg PO BEDTIME PRN PRN Reason: Insomnia Morphine Sulfate (Morphine Sulfate 4 Mg/Ml Cartridge) 4 mg IVPUSH Q4H PRN; Protocol PRN Reason: Pain, Severe (Pain Scale 7-10) Last Admin: 07/07/24 06:15 Dose: 4 mg Nadolol (Nadolol 40 Mg Tablet) 40 mg PO DAILY [facility]; Protocol Last Admin: 07/07/24 08:48 Dose: 40 mg Non-Formulary Medication (Fluorouracil) 1 appl TOPICAL BID [facility] Non-Formulary Medication (Sucroferric Oxyhydroxide [Velphoro]) 500 mg PO TID [facility] Oxycodone HCl (Oxycodone Hcl Immed Release 5 Mg Tablet) 5 mg PO Q4H PRN PRN Reason: Pain, Moderate(Pain Scale 4-6) Last Admin: 07/07/24 08:48 Dose: 5 mg Home Medications ?Medication ?Instructions ?Recorded ?Confirmed ?Last Taken ?Type allopurinol 300 mg tablet 300 mg PO DAILY 04/21/24 07/06/24 06/08/24 History amlodipine 5 mg tablet 5 mg PO SUMOWEFR@0900 04/21/24 07/06/24 07/06/24 History atorvastatin 20 mg tablet 20 mg PO DAILY 04/21/24 07/06/24 07/06/24 History fluorouracil 5 % topical cream 1 appl topical BID 04/21/24 07/06/24 Unknown History hydroxyzine HCl 25 mg tablet 25 mg PO TID PRN Itching 04/21/24 07/06/24 06/08/24 History isosorbide mononitrate 60 mg 60 mg PO DAILY 04/21/24 07/06/24 06/08/24 History tablet,extended release 24 hr nadolol 40 mg tablet 40 mg PO DAILY 04/21/24 07/06/24 07/06/24 History sucroferric oxyhydroxide 500 mg 500 mg PO TID 04/21/24 07/06/24 Unknown History chewable tablet (Velphoro) cholecalciferol (vitamin D3) 50 200 mcg PO DAILY 07/06/24 07/06/24 Unknown History mcg (2,000 unit) tablet (Vitamin D3) Physical Exam Vital Signs: Last Vital Signs Temp 98.8 F 07/07/24 08:00 Pulse 73 07/07/24 08:00 Resp 16 07/07/24 08:00 BP 174/72 H 07/07/24 08:00 Pulse Ox 93 07/07/24 08:00 O2 Del Method Room Air 07/07/24 08:00 O2 Flow Rate 2 07/06/24 15:45 BMI result Body Mass Index 25.1 Comfortable Neck supple no JVD. Lungs entry equal no rales. Heart S1-S2 heard no gallop or rub. Abdomen soft nontender. Neuro alert awake oriented. No asterixis. Extremities no edema. AV fistula in the left arm but. Left arm is swollen. He has a PermCath on the right side of the chest. Results Lab Results 07/07/24 05:47 07/06/24 07:28 Lab results: Chemistry 07/06/24 07:28 Sodium 138 Potassium 5.0 Carbon Dioxide 27 Hematology 07/07/24 05:47 WBC 10.8 Hgb 8.3 L Plt Count 102 L D Assessment and Plan (1) ESRD (end stage renal disease): Status: Acute Plan No overt signs or symptoms of uremia. Volume status acceptable. Shall arrange for dialysis today. Dysfunctional AV fistula. Revision as per vascular surgery. Anemia due to end stage renal disease Add Retacrit. Serum electrolytes acceptable. Keep on low-sodium diet Procedures Date of Service Date of Service: 07/07/24
--- NOTE | 2024-07-07 11:47 | MHC.CM.PN ---
Addendum entered by Umm Huitron 07/07/24 13:24: DP: PT HAS BEEN MEDICALLY CLEARED FOR DC HOME, NO SERVICES AFTER HD THIS JAMIR. PER REQUEST OF PT, [facility] PRE-BOOKED FOR 6 PM TO HOME. RN MADE AWARE. Original Note: [facility] DELIVERED PT LIVES ALONE AND IS FUNCTIONALLY INDEPENDENT. PT ATTENDS HD AT [facility]. PT HAS TRANSPORTATION THROUGH [facility]. +HCP PCP DR. ANIRUDH PATEL DP: HOME WITH RESUMPTION OF HD. PT WILL NEED [facility] RIDE. CM WILL CONTINUE TO FOLLOW FOR ANY CHANGE TO DC PLAN.
--- NOTE | 2024-07-07 12:24 | PM.DS ---
DS: Providers Provider Date of Service: 07/07/24 Date of admission: 07/06/24 14:30 Primary care physician: Unknown Physician Consults: 07/06/24 17:20 Consult to Hospitalist Stat Comment: Consulting Provider: [facility] Reason For Exam: Swollen Left Arm 07/07/24 08:02 Consult to Nephrology Stat Consulting Provider: [facility] Reason for consultation: needs dialysis please, today, prior to discharge DS: Diagnosis Discharge Diagnosis (1) ESRD (end stage renal disease): Status: Acute DS: Summary Hospital Course Hospital Course: Andriy is s/p attempted AV fistula revision. The revision was not successful. He was admitted due to pain mgte and transportation issues. I took the dressing down this morning due to drainage noted on the bandage. There is some bruising noted on the more proximal aspect of the fistula site. Painful to palpation. The pt states the pain is more tolerable this morning. He is also overdue for dialysis and would not make his dialysis appt so we dialyzed him while inpatient. He will be ready to go home after dialysis has been completed. We have sent Oxycodone 5mg bid prn to the pharmacy for pain control. Dressing changed this morning with 4x4 and Kerlix. We will follow up with him outpatient. Status at Discharge Functional status at discharge: independent ambulation Overall status at discharge: patient is back to baseline Time Attestation Discharge Coordination Time (in mins): >45 Quality: Safe Use of Opioids Does Pt have an Active Cancer Diagnosis on the Problem List?: No Quality: Stroke Does the patient have a stroke diagnosis?: No Physical Exam Vital Signs: Vital Signs: Last Vital Signs Temp 98.8 F 07/07/24 08:00 Pulse 73 07/07/24 08:00 Resp 16 07/07/24 08:00 BP 174/72 H 07/07/24 08:00 Pulse Ox 93 07/07/24 08:00 O2 Del Method Room Air 07/07/24 08:00 O2 Flow Rate 2 07/06/24 15:45 BMI result Body Mass Index 25.1 Const: General: no acute distress Orientation/consciousness: patient oriented x3 HEENT: Ears: hearing grossly normal bilaterally Resp: Effort & Inspection: normal respiratory effort and able to speak in complete sentences Auscultation: clear to auscultation bilaterally Cardio: Jugular venous distension: no JVD Rate: regular rate Rhythm: regular rhythm Heart sounds: S1 normal heart sound present and S2 normal heart sound present Bruits: no abdominal aortic bruits, no carotid bruits, no femoral bruits and no renal bruits Peripheral pulses: Peripheral pulses 2+ throughout GI: Palpation (GI): No Abdominal aortic bruit present Skin: General skin exam: no rashes or lesions noted Hair: normal Neuro: General: patient oriented x3 Cranial nerves: Yes CN's II-XII intact bilaterally Cognition (Neuro): normal cognition Gait exam (Neuro): Normal gait present Motor exam (neuro): 5/5 motor strength present throughout Extrem: Other: Left upper extremity: dressing taken down this morning. Bruising noted at the proximal aspect of the fistula site. No new bleeding/discharge noted after removal of bandage. Steri strips in place. Psych: Appearance: grossly normal Speech and movement: Normal speech and movement present Affect: normal affect DS: Data Data Completed and Pending Labs on day of discharge: Laboratory Results - last 24 hr 07/06/24 07/07/24 Unknown 05:47 WBC 10.8 RBC 2.43 L Hgb 8.3 L Hct 25.0 L MCV 102.9 H MCH 34.2 H MCHC 33.2 RDW 14.9 Plt Count 102 L D MPV 11.4 Immature Gran % (Auto) 0.3 Neut % (Auto) 81.3 H Lymph % (Auto) 12.7 L Kern % (Auto) 5.4 Eos % (Auto) 0.1 Baso % (Auto) 0.2 Lymph # (Auto) 1.4 Kern # (Auto) 0.6 Eos # (Auto) 0.0 Baso # (Auto) 0.0 Abs Immat Gran (auto) 0.03 Absolute Neuts (auto) 8.8 H Absolute Nucleated RBC 0.000 Nucleated RBC % (auto) 0.0 Blood Type Cancelled Antibody Screen Cancelled Discharge Plan Discharge Anticipated Discharge Date/Time: 07/07/24 15:19 Patient Disposition: Home, Self-Care Discharge Diagnosis: s/p attempted AV fistula revision Referrals: Physician,Unknown J [Primary Care Provider] - 1 Week Discharge Medications: New oxycodone 5 mg capsule 5 mg PO BID PRN (Reason: pain) Qty: 10 0RF Rx Instructions: Partial Fill upon patient request. Continued cholecalciferol (vitamin D3) [Vitamin D3] 50 mcg (2,000 unit) Tablet 200 mcg PO DAILY nadolol 40 mg tablet 40 mg PO DAILY isosorbide mononitrate 60 mg tablet extended release 24 hr 60 mg PO DAILY fluorouracil 5 % cream 1 appl topical BID atorvastatin 20 mg tablet 20 mg PO DAILY Velphoro 500 mg tablet,chewable 500 mg PO TID hydroxyzine HCl 25 mg tablet 25 mg PO TID PRN (Reason: Itching) amlodipine 5 mg tablet 5 mg PO SUMOWEFR@0900 Rx Instructions: saturday allopurinol 300 mg tablet 300 mg PO DAILY Discharge Orders: Discharge Order (Routine); Ordered 07/07/24 Ordered By: Amaya Daley Diet: Advance to usual diet Activity on Discharge: As tolerated Print Language: Singaporean Activity Restrictions/Additional Instructions: Skin glue was used and you may shower as early as tomorrow. Take it easy today and you may ambulate around the house. Within 24 hours you can resume normal activity You may climb a flight of stairs as tolerated Do not lift anything heavier than a gallon of milk for [address] Sena in follow-up in approximately 2 weeks time. You should already have an appointment if not please call my office at [phone] Please see above for any change in medications If you notice excessive bleeding from the arm, please immediately call my office or return to the emergency room. Care Plan Goals: Continue with dialysis with permacath for now until we can revist the AV fistula. Health Concerns: ESRD. Plan of Treatment: Continue with dialysis. Keep area clean and dry at the site of the fistula. Follow up in our office, appt made. Assessment: s/p attempted AV fistula revision
[2024-07-07 17:01] VITALS: BP 131/65; PULSE 64; RESP 18; TEMP 36.4; O2SAT 94
== END 2024-07-07 18:16 | disposition home or self-care (01) | DRG 252 ==
LOC: HO.SSSA 14:39 → HO.S3 15:07
PROVIDERS: Anesthesiology; Student in an Organized Health Care Education/Training Program; Admitting Provider Physician Assistant Surgical; Visit Provider Surgery Vascular Surgery
PROC: 03LY0ZZ Occlusion of Upper Artery, Open Approach (ICD-10-PCS; CPT 36832; principal; 2024-07-06 07:30)
DX: T82.898A Other specified complication of vascular prosthetic devices, implants and grafts, initial encounter (principal); N18.6 End stage renal disease; I12.0 Hypertensive chronic kidney disease with stage 5 chronic kidney disease or end stage renal disease; N17.9 Acute kidney failure, unspecified; Y83.2 Surgical operation with anastomosis, bypass or graft as the cause of abnormal reaction of the patient, or of later complication, without mention of misadventure at the time of the procedure; I25.10 Atherosclerotic heart disease of native coronary artery without angina pectoris; Z99.2 Dependence on renal dialysis; K70.30 Alcoholic cirrhosis of liver without ascites; J43.9 Emphysema, unspecified; Z79.899 Other long term (current) drug therapy
CPT/HCPCS: 36832; 36415; 73200; 80051; 85025; 90999; A4649; C1889; C9250; J0690; J1100; J1644; J2003; J2250; J2270; J2405; J2704; J2795; J3010; Q5106

== ENCOUNTER → 2024-07-06 14:30 | Outpatient (BNV) | payer OTHER, SELFPAY | PROVIDERS: Admitting Provider Physician Assistant Surgical; Visit Provider Internal Medicine Hypertension Specialist | DX: N18.6 End stage renal disease (principal); Z99.2 Dependence on renal dialysis | CPT/HCPCS: 90935 ==

== ENCOUNTER → 2024-07-06 14:30 | Outpatient (BNV) | payer OTHER, SELFPAY | PROVIDERS: Admitting Provider Physician Assistant Surgical; Visit Provider Hospitalist | DX: R60.0 Localized edema (principal); N18.6 End stage renal disease | CPT/HCPCS: 99222 ==

== ENCOUNTER → 2024-07-08 | Outpatient (BNV) | payer OTHER, SELFPAY | PROVIDERS: Visit Provider Internal Medicine Nephrology | DX: N18.6 End stage renal disease (principal) | CPT/HCPCS: 90961 ==

== ENCOUNTER 2024-07-16 08:44 | Outpatient (AMB) | payer OTHER, SELFPAY ==
--- NOTE | 2024-07-16 09:09 | A.OFFVIS_ITS ---
Intake Visit Reasons: 2 week follow up s/p L arm Fistula- 2nd stage Intake Note: follow up Left UE fistula creation 07/06/24, pt has heavy bleeding and drainage where incision is. Accompanied by: Self / Same As Patient Allergies No Known Allergies Allergy (Verified 07/16/24 09:11) HPI HPI 2 week follow up s/p L arm Fistula- 2nd stage: Details: Complex 69-year-old gentleman presents for follow-up regarding his attempted left upper extremity fistula creation. Unfortunately basilic vein did not mature. It actually avulsed and had to have arterial reconstruction. Postop he developed a significant hematoma and was kept overnight. He was subsequently discharged. He at the dialysis center noted to have some swelling and drainage through the incision line and now presents for follow-up. [facility] Medical History Anemia Severe thrombocytopenia Ascites Other emphysema Dyspnea Fistula Paranoid delusion Metabolic acidosis Latent tuberculosis by blood test HTN (hypertension) Hepatitis C Gout Esophageal varices Chronic hyperkalemia Bradycardia Cardiomyopathy Bipolar disorder Smoker CAD (coronary artery disease) Cirrhosis ESRD (end stage renal disease) Surgical History A-V fistula History of esophagogastroduodenoscopy Social History Household Members: None Household Members Other:: watching his brother's home right now. Sister checks on him Housing: House Are you a primary chiropractic care to a significant other at home: No Do you presently have visiting nurse or other home services: No Patient Tobacco Use Status: Current everyday Tobacco user Tobacco use type: Cigarette Cigarettes Per Day: 7 Years Smoked: 25 Substance Use Type: Marijuana service: No Review of Systems Const All systems reviewed & are unremarkable except as noted in HPI and below Reports no additional complaints ENT Reports Normal hearing present Card Denies chest pain, Denies chest pain at rest, Denies chest pain with activity and Denies pedal edema Resp Denies cough GI Denies abdominal pain Musc Denies abnormal gait, Denies muscle cramps and Denies radiating pain into limb Skin/Breast Denies skin ulcer and Denies wounds Neuro Reports Normal hearing present and Denies abnormal gait Psych Reports no additional complaints Physical Exam Const General: cooperative, healthy appearing and comfortable Orientation/consciousness: oriented to person, oriented to place and oriented to time HEENT Head: Yes normal to inspection Neck Neck: Yes normal visual inspection Carotids: no bruits Chest Chest palpation & inspection: normal inspection of the chest Resp Effort & Inspection: normal respiratory effort and able to speak in complete sentences Auscultation: clear to auscultation bilaterally, no crackles, no rales, no rhonchi and no wheezes Cardio Rate: regular rate Rhythm: regular rhythm Heart sounds: S1 normal heart sound present and S2 normal heart sound present Bruits: no carotid bruits Peripheral pulses: Peripheral pulses 2+ throughout GI Inspection: Yes normal to inspection Skin Wounds: no wounds Hair: normal Neuro General: oriented to person, oriented to place and oriented to time Cranial nerves: Yes CN's II-XII intact bilaterally and Yes Normal hearing present Cognition (Neuro): normal cognition Motor exam (neuro): 5/5 motor strength present throughout Extrem Other: Left upper extremity hematoma approximately 10 cm in diameter. There is some serous drainage through the incision line but appears to be no active bleeding. Palpable brachial radial ulnar pulses. General: No clubbing, No cyanosis and No edema Psych Appearance: grossly normal Mental Status: mental status grossly normal Speech and movement: Normal speech and movement present Assessment & Plan Assessment & Plan (1) ESRD (end stage renal disease): Comment: HD on Code(s): N18.6 - End stage renal disease Category: Medical Plan: In short patient has a failed fistula creation. At the current time would like this to heal and the hematoma resolve. We will observe him extremely closely. I do believe that some of this is just serous drainage. We did discussed local wound care along with an ABD and Wero wrap. Will follow up with us in approximately 1 week's time to ensure that it is headed towards the correct direction. Thank you for allowing us to assist in his care. If there are any questions or concerns please do not hesitate to contact us. Coding Level of Care Code Est Pt Level 4 (52196) Diagnoses ESRD (end stage renal disease) N18.6
== END 2024-07-16 09:54 | disposition home or self-care (01) ==
PROVIDERS: Visit Provider Surgery Vascular Surgery
DX: N18.6 End stage renal disease (principal)
CPT/HCPCS: 99024

== ENCOUNTER → 2024-07-16 08:44 | Outpatient (BNVA) | payer OTHER, SELFPAY | PROVIDERS: Visit Provider Surgery Vascular Surgery | DX: N18.6 End stage renal disease (principal) | CPT/HCPCS: 99212 ==

== ENCOUNTER 2024-07-22 11:54 | Outpatient (AMB) | payer OTHER, SELFPAY ==
--- NOTE | 2024-07-22 11:52 | MHC.OFFVIS ---
Intake Visit Reasons: 1 week hematoma check Intake Note: 1 week follow up Left UE hematoma s/p Left AV Fistula creation ( 2nd stage) 07/06/24. Pt states it is starting to decrease in swelling and drainage. Accompanied by: Self / Same As Patient Allergies No Known Allergies Allergy (Verified 07/22/24 11:55) HPI HPI 1 week hematoma check: Details: Andriy is presenting today for one-week wound care check of his left upper extremity. Upon attempt to revise the fistula it was found that the basilic vein did not mature and avulsed. There was also arterial reconstruction that needed to occur. He states the swelling and draining/bleeding has gone down since last week. He has been changing the dressings daily; he has had dialysis change them as well. He continues to endorse frustrations towards the site failing. He states the pain has gotten a little better. [facility] Medical History Anemia Severe thrombocytopenia Ascites Other emphysema Dyspnea Fistula Paranoid delusion Metabolic acidosis Latent tuberculosis by blood test HTN (hypertension) Hepatitis C Gout Esophageal varices Chronic hyperkalemia Bradycardia Cardiomyopathy Bipolar disorder Smoker CAD (coronary artery disease) Cirrhosis ESRD (end stage renal disease) Surgical History A-V fistula History of esophagogastroduodenoscopy Social History Household Members: None Household Members Other:: watching his brother's home right now. Sister checks on him Housing: House Are you a primary long term care administrator to a significant other at home: No Do you presently have visiting nurse or other home services: No Patient Tobacco Use Status: Current everyday Tobacco user Tobacco use type: Cigarette Cigarettes Per Day: 7 Years Smoked: 25 Substance Use Type: Marijuana service: No Review of Systems Const Reports as per HPI and Denies weakness ENT Reports Normal hearing present and Denies dizziness Card Reports as per HPI, Denies chest pain, Denies chest pain at rest, Denies chest pain with activity, Denies dyspnea and Denies dyspnea on exertion Resp Reports as per HPI, Denies cough, Denies dyspnea and Denies dyspnea on exertion GI Reports as per HPI, Denies abdominal pain, Denies nausea and Denies vomiting Musc Denies numbness Skin/Breast Reports as per HPI, Denies erythema and Denies wounds Neuro Reports Normal hearing present, Denies dizziness, Denies numbness, Denies Sensory deficit (Neuro) and Denies weakness Psych Reports no additional complaints Endo Reports no additional complaints Physical Exam Const General: healthy appearing and no acute distress Orientation/consciousness: patient oriented x3 HEENT Head: Yes normal to inspection Ears: hearing grossly normal bilaterally Mouth: Normal oral and palatal mucosa present Resp Effort & Inspection: normal respiratory effort and able to speak in complete sentences Auscultation: clear to auscultation bilaterally Cardio Jugular venous distension: no JVD Rate: regular rate Rhythm: regular rhythm Heart sounds: S1 normal heart sound present and S2 normal heart sound present Bruits: no abdominal aortic bruits, no carotid bruits, no femoral bruits and no renal bruits Peripheral pulses: Peripheral pulses 2+ throughout GI Inspection: Yes normal to inspection Palpation (GI): No Abdominal aortic bruit present Skin General skin exam: no rashes or lesions noted Wounds: no wounds Hair: normal Neuro General: patient oriented x3 Cranial nerves: Yes Normal hearing present Cognition (Neuro): normal cognition Gait exam (Neuro): Normal gait present Motor exam (neuro): 5/5 motor strength present throughout Sensory Exam: No Sensory deficit (Neuro) Extrem Other: Left upper extremity: hematoma measures appx 9cm in diameter. There is minimal serous drainage noted in the incision site. There is no active bleeding. Palpable brachial and radial pulses. General: Yes normal to inspection, Yes full ROM, Yes capillary refill normal and Yes normal gait Assessment & Plan Assessment & Plan (1) ESRD (end stage renal disease): Comment: HD on Code(s): N18.6 - End stage renal disease Category: Medical Plan: Andriy is presenting today due to a failed fistula revision of the left upper extremity. He has since been having drainage and pain at the site. He states the drainage and pain have both decreased. He is very upset about the procedure and that it will not be able to be accessed. We had a lengthy discussion about the reasonings why. We will have him continue with the same dressing changes. We will have him follow up in 2 weeks. If there are any questions or concerns, please do not hesitate to reach out to us. Coding Level of Care Code Est Pt Level 4 (62630) Diagnoses ESRD (end stage renal disease) N18.6
== END 2024-07-22 12:18 | disposition home or self-care (01) ==
PROVIDERS: Visit Provider Physician Assistant Surgical
DX: N18.6 End stage renal disease (principal)
CPT/HCPCS: 99024

== ENCOUNTER → 2024-07-22 11:54 | Outpatient (BNVA) | payer OTHER, SELFPAY | PROVIDERS: Visit Provider Physician Assistant Surgical | DX: N18.6 End stage renal disease (principal); Z98.890 Other specified postprocedural states | CPT/HCPCS: 99212 ==

== ENCOUNTER → 2024-08-05 12:05 | Outpatient (BNVA) | payer OTHER, SELFPAY | PROVIDERS: Visit Provider Physician Assistant Surgical | DX: R60.0 Localized edema (principal) | CPT/HCPCS: 99212 ==

== ENCOUNTER → 2024-08-08 | Outpatient (BNV) | payer OTHER, SELFPAY | PROVIDERS: Visit Provider Internal Medicine Nephrology | DX: N18.6 End stage renal disease (principal) | CPT/HCPCS: 90961 ==

== ENCOUNTER 2024-08-26 12:22 | Outpatient (AMB) | payer OTHER, SELFPAY ==
--- NOTE | 2024-08-26 12:27 | A.OFFVIS_ITS ---
Intake Visit Reasons: 3 week follow up Intake Note: 3 week follow up Left UE AVF creation incision non-healing. Pt still has one spot that is open but healing, does drain and needs dressing changes daily. Accompanied by: Self / Same As Patient Allergies No Known Allergies Allergy (Verified 08/26/24 12:32) HPI HPI 3 week follow up: Details: Andriy is presenting today on a 3 week follow up status post AV fistula failure. He states the site is looking better but does continue to have some drainage/bleeding from the central area of the fistula. He has been using Band- Aids, but states this has been having to change them frequently during the day. Denies any pain at the site. He continues to be frustrated with the whole situation. [facility] Medical History Anemia Severe thrombocytopenia Ascites Other emphysema Dyspnea Fistula Paranoid delusion Metabolic acidosis Latent tuberculosis by blood test HTN (hypertension) Hepatitis C Gout Esophageal varices Chronic hyperkalemia Bradycardia Cardiomyopathy Bipolar disorder Smoker CAD (coronary artery disease) Cirrhosis ESRD (end stage renal disease) Surgical History A-V fistula History of esophagogastroduodenoscopy Social History Household Members: None Household Members Other:: watching his brother's home right now. Sister checks on him Housing: House Are you a primary auto care center manager to a significant other at home: No Do you presently have visiting nurse or other home services: No Patient Tobacco Use Status: Current everyday Tobacco user Tobacco use type: Cigarette Cigarettes Per Day: 7 Years Smoked: 25 Substance Use Type: Marijuana service: No Review of Systems Const Reports as per HPI and Denies weakness ENT Reports Normal hearing present and Denies dizziness Card Reports as per HPI, Denies chest pain, Denies chest pain at rest, Denies chest pain with activity, Denies dyspnea and Denies dyspnea on exertion Resp Reports as per HPI, Denies cough, Denies dyspnea and Denies dyspnea on exertion GI Reports as per HPI, Denies abdominal pain, Denies nausea and Denies vomiting Musc Denies numbness Skin/Breast Reports as per HPI, Denies erythema and Denies wounds Neuro Reports Normal hearing present, Denies dizziness, Denies numbness, Denies Sensory deficit (Neuro) and Denies weakness Psych Reports no additional complaints Endo Reports no additional complaints Physical Exam Const General: healthy appearing and no acute distress Orientation/consciousness: patient oriented x3 HEENT Head: Yes normal to inspection Ears: hearing grossly normal bilaterally Mouth: Normal oral and palatal mucosa present Resp Effort & Inspection: normal respiratory effort and able to speak in complete sentences Auscultation: clear to auscultation bilaterally Cardio Jugular venous distension: no JVD Rate: regular rate Rhythm: regular rhythm Heart sounds: S1 normal heart sound present and S2 normal heart sound present Bruits: no abdominal aortic bruits, no carotid bruits, no femoral bruits and no renal bruits Peripheral pulses: Peripheral pulses 2+ throughout GI Inspection: Yes normal to inspection Palpation (GI): No Abdominal aortic bruit present Skin General skin exam: no rashes or lesions noted Wounds: no wounds Hair: normal Neuro General: patient oriented x3 Cranial nerves: Yes Normal hearing present Cognition (Neuro): normal cognition Gait exam (Neuro): Normal gait present Motor exam (neuro): 5/5 motor strength present throughout Sensory Exam: No Sensory deficit (Neuro) Extrem Other: Left upper extremity: No hematoma noted. Approximately 0.5 cm hypergranulation tissue noted in the middle of the incision site. There is minimal serous drainage noted in the middle of the incision site, lessening. There is no active bleeding. The site is not painful anymore. Palpable brachial and radial pulses General: Yes normal to inspection, Yes full ROM, Yes capillary refill normal and Yes normal gait Assessment & Plan Assessment & Plan (1) Edema of left upper extremity: Code(s): R60.0 - Localized edema Category: Medical Plan: Andriy is here for the week follow up for a failed AV fistula and hematoma of the left upper extremity. He states he is having some minimal drainage from the middle of the site, and is placing Band-Aids on the site multiple times a day. He continues to endorse his frustration about another failed AV fistula site. We applied an Allevyn dressing to the area, so the patient would not have to change it as often. We are able to provide him with a couple of more Allevyn dressings for the next couple of weeks. At this point, the site has been healing and we will not need to follow up with him for this wound. We did discuss with the patient that he will likely need to get another AV fistula formed at some point; the patient states that he will think about it and he may go somewhere else for a placement of one. We discussed the importance of keeping the area clean and dry and keeping the Allevyn cover on it until it completely scabbed over. I discussed with him that once it starts scabbing over he can change the Band-Aids if he feels he needs to. Thank you for allowing us to participate in the patient's care. If there are any questions or concerns, please do not hesitate to reach out to us. Coding Level of Care Code Est Pt Level 3 (01511) Diagnoses Edema of left upper extremity R60.0
--- OUTSIDE RECORDS SUMMARY | 2024-08-26 12:44 | XMS_ITS | Encounter Summary ---
Author Organization [facility] Address [address] [place] [address] Care Team Providers Care Green Chain Offbearer Name Role Phone Keira Roche Primary Care Provider [phone] Encounter Details Date Type Department Care Team (Late st Contact Info) Description 07/27/2020 Orders Only [facility] Pulmonary Function Lab [address] [place] [address] November, Osvaldo Gomez RRT SOB (shortness of breath) (Primary Dx) Social History Tobacco Use Types Packs/Day Years Used Date Smoking Tobacco: Former Cigarettes Q uit: 06/10/2020 Smokeless Tobacco: Never Sex and Gender Information Value Date Recorded Sex Assigned at Not on file Legal Sex Male 10:36 AM EDT Gender Identity Not on file Sexual Orientation Not on file documented as of this encounter Plan of Treatment Not on file documented as of this encounter Results * Due to [place] state law, this organization might not be sharing negative HIV tests. * COVID-19 PCR, Pre-Procedure (Asymptomatic), VOLTAGE TESTER/OP/Saliva (08/08/2020 10:13 AM EST) SARS CoV 2 RNA, RT PCR Not Detected Not Detected 08/09/2020 9:34 AM EST [facility] Comment:A Not Detected (Nega tive) test result is indicative of the absence of SARS-CoV-2 RNA at the level of LoD (Limit of Detection). A negative result does not rule out the possibility of COVID-19 and should not be used as the sole basis for treatment or patient management decisions. If COVID-19 is still suspected, based on exposure history together with other clinical findings, re-testing should be considered. Swab (Naso- and/or Oropharyngeal) Non-Blood Collection / Unknown 08/08/2020 10:13 AM EST 08/08/2020 2:09 PM EST Narrative [facility] - 08/09/2020 9:34 AM EST These tests were developed, validated, and their performance characteristics determined by the [facility] Vi[facility] Laboratory at [facility] under CLIA [id number]. They have not been cleared or approved by the U.S. Food and Drug Administration (FDA). FDA Policy for Diagnostic Tests for Coronavirus Disease-2019 during the Public Health Emergency issued September 21, 2019, is followed. us Marybeth Zee VOLTAGE TESTER LAB BODY FLUIDS AND STOOLS O RDERABLES Final Result [facility] [address] [place] [address], documented in this encounter Visit Diagnoses Diagnosis SOB (shortness of breath)- Primary Shortness of breath documented in this encounter Additional Health Concerns Infection Onset Date Last Indicated Resolved Time R/O TB 08/08/2020 08/08/2020 08/09/2020 2:54 PM EST R/O TB 08/10/2020 08/10/2020 08/11/2020 2:27 PM EST R/O TB 08/12/2020 08/12/2020 08/13/2020 1:57 PM EST documented as of this encounter Care Teams Green Chain Offbearer Relationship Specialty Start Date End Date Keira Roche [address] [place] [address] PCP - General Internal Medicine 04/20/20 documented as of this encounter
--- OUTSIDE RECORDS SUMMARY | 2024-08-26 12:44 | XMS_ITS | Clinical Summary ---
Author Organization [facility] Address [address] [place] [address] Care Team Providers Care Griddle Cook Name Role Phone Keira Roche Primary Care Provider [phone] Allergies No known active allergies Medications nadoloL (CORGARD) 40 mg tablet Take 40 mg by mouth daily. 04/22/2020 Active allopurinoL (ZYLOPRIM) 100 mg tablet TK 2 TS PO D 04/21/2020 Active Veltassa 8.4 gram packet MIX AND DRK 8.4 GRAMS PO D FOR 30 DAYS 04/28/2020 Active sevelamer carbonate (RENVELA) 800 mg tablet TAKE 1 TABLET BY MOUTH THREE TIMES DAILY WITH MEALS 06/21/2020 Active rifAMPin (RIFADIN) 300 mg capsule Take 300 mg by mouth 2 times a day. 08/23/2020 Active acetaminophen (TYLENOL) 325 mg tablet Take 650 mg by mouth every 6 hours as needed for pain. Active aspirin 81 mg EC tablet Take 1 tablet (81 mg total) by mouth daily. 10/05/2020 Active atorvastatin (LIPITOR) 40 mg tablet Take 1 tablet (40 mg total) by mouth daily. 30 tablet 2 10/05/2020 Active nitroglycerin (NITROSTAT) 0.[address] 1 tablet (0.4 mg total) under the tongue every 5 minutes as needed for chest pain. May repeat 1 tab every 5 min, up to 3 doses total 25 tablet 2 10/05/2020 Active Active Problems Problem Noted Date Diagnosed Date ASHD (arteriosclerotic heart disease) 09/12/2020 Cardiomyopathy, ischemic 09/12/2020 Essential hypertension 09/12/2020 Moderate mitral regurgitation 09/12/2020 Chronic gout without tophus 09/12/2020 Overview (09/12/2020): Added automatically from request for surgery [id number] Latent tuberculosis by blood test 07/22/2020 Delusional disorder, persecutory type, continuou s (CMS/HCC) 07/18/2020 Alcoholic cirrhosis of liver without ascites (CM S/HCC) 07/18/2020 Encounter for pre-transplant evaluation for liver transplant 07/18/2020 Abnormal PFTs Immunizations Immunization Administration Dates Next Due Covid-19 Monovalent Vaccine, Moderna, mRNA, PF 0 09/29/2020,08/18/2020 Influenza, Injectable, Madin [place] Canine Kidney, Preservative Free, Quadrivalent 04/01/2020,03/10/2019 Influenza, Injectable, Quadrivalent, Preservativ e Free 03/01/2020,04/21/2018 Pneumococcal Polysaccharide Vaccine, 23 Valent 0 03/16/2020 Family History Medical History Relation Name Comments Kidney disease Brother COPD Father Emphysema Father Dementia Mother Relation Name Status Comments Brother Father Mother Social History Tobacco Use Types Packs/Day Years Used Date Smoking Tobacco: Some Days Cigarettes 0.5 45 Cigars Smokeless Tobacco: Never Comments:4-5 cigarettes a da y a 5 cigars a week Alcohol Use Standard Drinks/Week Comments Not Currently 0 (1 standard drink = 0.6 oz pur e alcohol) relapsed 2012, sober since Sex and Gender Information Value Date Recorded Sex Assigned at Not on file Legal Sex Male 10:36 AM EDT Gender Identity Not on file Sexual Orientation Not on file Last Filed Vital Signs Vital Sign Reading Time Taken Comments Blood Pressure 125/62 07/31/2021 8:47 AM EST Pulse 67 07/31/2021 8:47 AM EST Temperature 37.1 ??C (98.8 ??F) 10/05/2020 9:25 AM ED T Respiratory Rate 18 07/31/2021 8:47 AM EST Oxygen Saturation 96% 07/31/2021 8:47 AM EST Inhaled Oxygen Concentration - - Weight 84.8 kg (187 lb) 07/31/2021 8:47 AM EST Height 182.9 cm (6') 07/31/2021 8:47 AM EST Body Mass Index 25.36 07/31/2021 8:47 AM EST Plan of Treatment Health Maintenance Due Date Last Done Comments Cologuard 1955 Colon Cancer Screening 1955 Colonoscopy 1955 FOBT / Fit Test 1955 Sigmoidoscopy 1955 Hepatitis B Vaccines (1 of 3 - Risk 3-dose series) 2015 RSV Vaccine (60+ years old a nd patients) (1 - Risk 60-74 years 1-dose series) 2015 Zoster Vaccines (2 of 3) 11/15/2015 09/20/2015 Pneumococcal Vaccine: 50+ Ye ars (2 of 2 - PCV) 03/16/2021 03/16/2020 Basic Metabolic Panel 09/12/2021 09/12/2020, 021 CT Lung Cancer Screening (Baseline) 10/10/2021 10/10/2020, 07/20/2020 COVID-19 Vaccine (3 - 2023-2 5 season) 2024 09/29/2020, 08/18/2020 Influenza Vaccine (#1) 2024 , 03/01/2020, 03/10/2019, Additional history exists Alcohol/Substance Use Screening 07/08/2024 Depression Screening and Follow-Up 07/08/2024 Health Care Proxy Review 07/08/2024 Social Drivers of Health Rody ual Screening 07/08/2024 DTaP,Tdap,and Td Vaccines (6 - Td or Tdap) 07/08/2028 07/08/2018, 07/08/2018, 07/08/2016, Additional history exists Hepatitis C Screening Completed 07/11/2020 , 07/11/2020, 06/03/2020 CT Lung Cancer Screening (12 months, previous LungRADS 1 or 2) Discontinued 10/10/2020, 07/20/2020 Procedures * Due to [place] state law, this organization might not be sharing negative HIV tests. Procedure Name Priority Date/Time Associated Diagnosis Comments CT CHEST WO CONTRAST Routine 10/10/2020 2:56 PM EDT Pulmonary nodules COMPREHENSIVE METABOLIC PANEL Routine 09/12/2020 3:23 PM EST Encounter for pre-transplant evaluation for liver transplant ASHD (arteriosclerotic heart disease) Cardiomyopathy, ischemic Essential hypertension HEPATITIS C ANTIBODY W/REFLEX TO HCV RNA, QUANTITATIVE PCR Routine 07/11/2020 3:08 PM EST Encounter for pre-transplant evaluation for liver transplant from Last 3 Months or Most Recently Relevant to Health Maintenance Results * Due to [place] state law, this organization might not be sharing negative HIV tests. * CT Chest without Contrast (10/10/2020 2:56 PM EDT) Anatomical Region Laterality Modality Body Computed Tomogra phy 10/11/2020 3:36 PM EDT Impressions 10/12/2020 9:43 AM EDT Impression: Interval resolution of nodular consolidative opacities in the right lower lobe. Subtle groundglass opacity and septal thickening may reflect mild volume overload/pulmonary edema. If this radiology report contains a blank impression section, it is an incomplete radiology report. ??Please contact the interpreting radiologist or applicable radiology division as soon as possible to obtain the completed interpretation. ? Workstation ID: [id number] Narrative 10/12/2020 9:43 AM EDT Indication: ??nodular pneumonia R91.8 - I10 - Other nonspecific abnormal finding of lung field, Comparison: 07/20/2020 Dose: For radiation dose control at least one of the following techniques was used in this procedure (1) Automated exposure control (2) Adjustment of the mA and/or kV according to patient size (3) Use of iterative reconstruction technique. Findings: Neck and thoracic inlet: No abnormality. Mediastinum and large vessels: ? Aorta Moderate aortic wall calcifications. Pulmonary arteries Dilatation of the main pulmonary artery, measuring 36 mm. Esophagus Patulous appearance of the esophagus. Other mediastinal findings No other abnormal mediastinal findings are present. Heart: Cardiac size Mild cardiomegaly. Coronary arteries Severe coronary calcifications. Valves Mild aortic valve calcifications. Pericardium No abnormality. Lymph nodes: Supraclavicular and axillary Normal sized lymph nodes, no enlarged lymph nodes. Mediastinal Subcarinal lymph node measures 11 mm in short axis, not significantly changed. Hilar Unremarkable hilar contours. The absence of intravenous contrast limits the evaluation for adenopathy. Others None. Lung parenchyma: Interval resolution of nodular consolidative opacities in the right lower lobe. Subtle groundglass opacity with septal thickening is noted. ??Paraseptal emphysema. Airways: Mild thickening and irregularities of the airway dewitt. ?? Pleura: No abnormality. Upper abdomen: No adrenal nodules. Cirrhotic appearance of the liver. No adrenal nodules. Chest wall and bones: Moderate degenerative vertebral disease. Deformity of the sternum may reflect a healed fracture. Procedure Note Sujatha Miller MD - 10/12/2020 Indication: nodular pneumonia R91.8 - I10 - Other nonspecific abnormalfinding of lung field, Comparison: 07/20/2020 Dose: For radiation dose control at least one of the following techniqueswas used in this procedure (1) Automated exposure control (2) Adjustmentof the mA and/or kV according to patient size (3) Use of iterativereconstruction technique. Findings: Neck and thoracic inlet: No abnormality. Mediastinum and large vessels: Aorta Moderate aortic wall calcifications. Pulmonary arteries Dilatation of the main pulmonary artery, measuring 36 mm. Esophagus Patulous appearance of the esophagus. Other mediastinal findings No other abnormal mediastinal findings are present. Heart: Cardiac size Mild cardiomegaly. Coronary arteries Severe coronary calcifications. Valves Mild aortic valve calcifications. Pericardium No abnormality. Lymph nodes: Supraclavicular and axillary Normal sized lymph nodes, no enlarged lymph nodes. Mediastinal Subcarinal lymph node measures 11 mm in short axis, not significantlychanged. Hilar Unremarkable hilar contours. The absence of intravenous contrast limitsthe evaluation for adenopathy. Others None. Lung parenchyma: Interval resolution of nodular consolidative opacities in the right lowerlobe. Subtle groundglass opacity with septal thickening is noted.Paraseptal emphysema. Airways: Mild thickening and irregularities of the airway dewitt. Pleura: No abnormality. Upper abdomen: No adrenal nodules. Cirrhotic appearance of the liver. No adrenalnodules. Chest wall and bones: Moderate degenerative vertebral disease. Deformity of the sternum mayreflect a healed fracture. IMPRESSION: Impression: Interval resolution of nodular consolidative opacities in the right lowerlobe. Subtle groundglass opacity and septal thickening may reflect mild volumeoverload/pulmonary edema. If this radiology report contains a blank impression section, it is anincomplete radiology report. Please contact the interpreting radiologistor applicable radiology division as soon as possible to obtain thecompleted interpretation. Workstation ID: [id number] Samira Holt MD IM CT PROCEDURES Final Result * (ABNORMAL) Comprehensive metabolic panel (09/12/2020 3:23 PM EST) NA 141 135 - 145 mmol/L 09/12/2020 4:33 PM EST [facility] K 4.4 3.5 - 5.3 mmol/L 09/12/2020 4:33 PM EST [facility] Cl 102 97 - 110 mmol/L 09/12/2020 4:33 PM EST [facility] CO2 27 24 - 32 mmol/L 09/12/2020 4:33 PM EST [facility] Anion Gap 12 5 - 15 09/12/2020 4:33 PM EST [facility] Glucose 78 70 - 99 mg/dL 09/12/2020 4:33 PM EST [facility] Creatinine 6.28(H) 0.60 - 1.30 mg/dL 09/12/2020 4:33 PM EST [facility] eGFR Non- 9(L) >=90 mL/min/BS A 09/12/2020 4:33 PM EST [facility] eGFR 10(L) >=90 mL/min/BS A 09/12/2020 4:33 PM EST [facility] Comment: Units = mL/min/1.73 m2 Glomerular Filtration Rate (GFR) is estimated based on the CKD-EPI Creatinine Equation (2009). Stage ?Description ? GFR 1 ? Normal ? >=90 mL/min/BSA 2 ? Mildly decreased GFR ? 60-89 mL/min/BSA 3 ? Moderately decreased GFR ? 30-59 mL/min/BSA 4 ? Severely decreased GFR ? 15-29 mL/min/BSA 5 ? Kidney Failure ? <15 mL/min/BSA Calcium 9.4 8.7 - 10.7 mg/dL 09/12/2020 4:33 PM EST [facility] Total Protein 8.0 6.0 - 8.0 g/dL 09/12/2020 4:33 PM EST [facility] Albumin 4.1 3.5 - 4.8 g/dL 09/12/2020 4:33 PM EST [facility] Bilirubin, Total 1.3(H) 0.3 - 1.2 mg/dL 09/12/2020 4:33 PM EST [facility] Alkaline Phosphatase 200(H) 30 - 115 U/L 09/12/2020 4:33 PM EST [facility] AST 41(H) 10 - 40 U/L 09/12/2020 4:33 PM EST [facility] ALT 52(H) 10 - 40 U/L 09/12/2020 4:33 PM EST [facility] BUN 56(H) 7 - 23 mg/dL 09/12/2020 4:33 PM EST [facility] Blood Structure of peripheral vein / Unknown Venipuncture / Unknown 09/12/2020 3:23 PM EST 09/12/2020 4:04 PM EST Shauna Alvarez MD LAB BLOOD ORDERABLES F inal Result [facility] [address] [place] [address], * (ABNORMAL) Hepatitis C Antibody w/Reflex to PCR (07/11/2020 3:08 PM EST) Hepatitis C Antibody REACTIVE( A) NON-REACT JENNIFFER 07/12/2020 12:32 AM EST [facility] Signal To Cut-Off 25.70(H) <1.00 021 12:32 AM EST [facility] Comment: Based on this result, the sample will be tested for HCV RNA by a Nucleic Acid Amplification Test (NAAT) to determine if the patient has a current active infection. Blood Structure of peripheral vein / Unknown Venipuncture / Unknown 07/11/2020 3:08 PM EST 07/11/2020 3:36 PM EST Narrative [facility] - 07/12/2020 12:32 AM EST [facility] Received Date: Nafisa Whittaker MD LAB BLOOD ORDERABLES Final R esult Performing Organization Address City/[facility]/ZIP Co de Phone Number [facility] [address] [facility] [address] [facility], [place] [address], [facility] [address] [facility] [address], [place] [address], from Last 3 Months or Most Recently Relevant to Health Maintenance Insurance MEDICARE Member Subscriber Plan / Payer (Ef fective 2002-Present) Name:Andriy Basurto Member ID:[id number] Relation to Subscriber:Self Name:Andriy Basurto Subscriber ID:[id number] Payer ID:[id number] Group ID:Not on file Type:Not on file Address: [address] [place] [address] MEDICARE Member Subscriber Plan / Payer (Ef fective 2002-Present) Name:Andriy Basurto Member ID:[id number] Relation to Subscriber:Self Name:Andriy Basurto Subscriber ID:[id number] Payer ID:[id number] Group ID:Not on file Type:Not on file Address: [address] [place] [address] Advance Directives Documents on File Type Date Recorded Patient Timber Packer Expl [facility] Care Proxy 07/19/2020 4:14 PM 07-11 * Full Code (Latest Code Status on File) Date Activated Date Inactivated Comments 10/05/2020 11:43 AM 10/05/2020 6:26 PM * Full Code Date Activated Date Inactivated Comments 10/05/2020 8:50 AM 10/05/2020 11:43 AM * Full Code Date Activated Date Inactivated Comments 09/29/2020 10:39 AM 10/05/2020 8:50 AM Care Teams Griddle Cook Relationship Specialty Start Date End Date Safi, Keira [address] [place] [address] PCP - General Internal Medicine 04/20/20
--- OUTSIDE RECORDS SUMMARY | 2024-08-26 12:44 | XMS_ITS | Encounter Summary ---
Author Organization [facility], Address [address] [place] [address] Phone Care Team Providers Care Aquatics Lifeguard Name Role Phone Keira Roche MD Primary Care Provider Encounter Details Date Type Department Care Team (Late st Contact Info) Description 12/31/2023 Documentation Only [facility], [address] [place] [phone] Ricky Bloom MD [address] [place] [phone] Social History Tobacco Use Types Packs/Day Years Used Date Smoking Tobacco: Every Day Cigarettes Last attempted to quit: 05/31/2020 Comments:Smoking History Inf o:Every day Alcohol Use Standard Drinks/Week Comments Not Currently 0 (1 standard drink = 0.6 oz pur e alcohol) Sex and Gender Information Value Date Recorded Sex Assigned at Not on file Legal Sex Male 4:54 PM EST Gender Identity Not on file Sexual Orientation Not on file documented as of this encounter Plan of Treatment Not on file documented as of this encounter Visit Diagnoses Not on filedocumented in this encounter Care Teams Aquatics Lifeguard Relationship Specialty Start Date End Date Keira Roche MD [address] [address] [place] [address] PCP - General Internal Medicine 12/13/23 documented as of this encounter
--- OUTSIDE RECORDS SUMMARY | 2024-08-26 12:44 | XMS_ITS | Referral Summary ---
Author Organization [facility] Address [address] [place] [address] Care Team Providers Care Last Sorter Name Role Phone Keira Roche Primary Care Provider [phone] Allergies No known active allergies Medications nadoloL [...] (09/12/2020): Added automatically from request for surgery [id number] Latent tuberculosis by blood test 07/22/2020 Delusional disorder, persecutory type, continuou s (CMS/HCC) 07/18/2020 Alcoholic cirrhosis of liver without ascites (CM S/HCC) 07/18/2020 Encounter for pre-transplant evaluation for liver transplant 07/18/2020 Abnormal PFTs Immunizations Immunization Administration Dates Next Due Covid-19 Monovalent Vaccine, Moderna, mRNA, PF 0 09/29/2020,08/18/2020 Influenza, Injectable, Madin [place] Canine Kidney, Preservative Free, Quadrivalent 04/01/2020,03/10/2019 Influenza, Injectable, Quadrivalent, Preservativ e Free 03/01/2020,04/21/2018 Pneumococcal Polysaccharide Vaccine, 23 Valent 0 03/16/2020 Social History Tobacco Use Types Packs/Day Years [...] 07/31/2021 8:47 AM EST Plan of Treatment Not on file Procedures * Due to [place] state law, this organization might not be [...] to Health Maintenance Results * Due to [place] state law, this organization might not be [...] obtain the completed interpretation. ? Workstation ID: [id number] Narrative 10/12/2020 9:43 AM EDT Indication: ??nodular [...] possible to obtain thecompleted interpretation. Workstation ID: [id number] Samira Holt MD IMG CT PROCEDURES Final Result * (ABNORMAL) Comprehensive metabolic panel (09/12/2020 3:23 PM EST) NA 141 135 - 145 mmol/L 09/12/2020 4:33 PM EST [facility] K 4.4 [...] >=90 mL/min/BS A 09/12/2020 4:33 PM EST [facility] eGFR 10(L) >=90 mL/min/BS A 09/12/2020 4:33 PM EST [facility] Comment: Units [...] - 10.7 mg/dL 09/12/2020 4:33 PM EST [facility] Total Protein 8.0 6.0 - 8.0 g/dL 09/12/2020 4:33 PM EST [facility] Albumin 4.1 3.5 - 4.8 g/dL 09/12/2020 4:33 PM EST [facility] Bilirubin, Total 1.3(H) 0.3 - 1.2 mg/dL 09/12/2020 4:33 PM EST [facility] Alkaline Phosphatase 200(H) 30 - 115 U/L 09/12/2020 4:33 PM EST [facility] AST 41(H) 10 - 40 U/L 09/12/2020 4:33 PM EST [facility] ALT 52(H) 10 - 40 U/L 09/12/2020 4:33 PM EST [facility] BUN 56(H) 7 - 23 mg/dL 09/12/2020 4:[address] [facility] Blood Structure of peripheral vein / Unknown Venipuncture / Unknown 09/12/2020 3:23 PM EST 09/12/2020 4:04 PM EST Shauna Alvarez MD LAB BLOOD ORDERABLES F inal Result [facility] [address] [place] [address], * (ABNORMAL) Hepatitis C Antibody w/Reflex to PCR (07/11/2020 3:08 PM EST) Hepatitis C Antibody REACTIVE( A) NON-REACT JENNIFFER 07/12/2020 12:32 AM EST [facility] Signal To Cut-Off 25.70(H) <1.00 021 12:32 AM EST [facility] Comment: Based on this result, the sample will be tested for HCV RNA by a Nucleic Acid Amplification Test (NAAT) to determine if the patient has a current active infection. Blood Structure of peripheral vein / Unknown Venipuncture / Unknown 07/11/2020 3:08 PM EST 07/11/2020 3:36 PM EST Narrative [facility] - 07/12/2020 12:32 AM EST [facility] Received Date: Nafisa Whittaker MD LAB BLOOD ORDERABLES Final R esult [facility] [address] [facility] [address], [place] [address], [place] [phone] [facility] [address] [facility] [address], [place] [address], [place] [phone] from Last 3 Months or Most Recently Relevant to Health Maintenance Insurance MEDICARE Member Subscriber Plan / Payer (Ef fective 2002-Present) Name:Andriy Basurto Member ID:[id number] Relation to Subscriber:Self Name:Andriy Basurto Subscriber ID:[id number] Payer ID:[id number] Group ID:Not on file Type:Not on file Address: [address] [place] [address] ([place]) [address] [place] [address] MEDICARE Member Subscriber Plan / Payer (Ef fective 2002-Present) Name:Andriy Basurto Member ID:[id number] Relation to Subscriber:Self Name:Andriy Basurto Subscriber ID:[id number] Payer ID:[id number] Group ID:Not on file Type:Not on file Address: [address] [place] [address] Advance Directives Documents on File Type Date Recorded Patient Staff Research Scientist Expl [facility] Care Proxy 07/19/2020 4:14 PM 07-11 * Full Code (Latest Code Status on File) Date Activated Date Inactivated Comments 10/05/2020 11:43 AM 10/05/2020 6:26 PM * Full Code Date Activated Date Inactivated Comments 10/05/2020 8:50 AM 10/05/2020 11:43 AM * Full Code Date Activated Date Inactivated Comments 09/29/2020 10:39 AM 10/05/2020 8:50 AM Care Teams Last Sorter Relationship Specialty Start Date End Date Keira Roche [address] [place] [address] PCP - General Internal Medicine 04/20/20
--- OUTSIDE RECORDS SUMMARY | 2024-08-26 12:44 | XMS_ITS | Clinical Summary ---
Author Organization [facility], Address [address] [place] [address] Phone Care Team Providers Care Block Stacker Name Role Phone Keira Roche MD Primary Care Provider [phone] Allergies Active Allergy Reactions Criticality Noted Date Comments Codeine Itching Low 09/08/2014 Pt denies Medications Aspirin 81 MG capsule 1 tablet by Other route 1 (one) time each day Active nadolol (CORGARD) 40 MG tablet Take 1 tablet by mouth 1 (one) time each day Active allopurinol (ZYLOPRIM) 100 MG tablet Comments: Filled Date: Apr 21 2020 12:00AM Patient Notes: TAKE 2 TABLETS BY MOUTH DAILY,tx cholesteral Duration: 90 0 Active atorvastatin (LIPITOR) 40 MG tablet Take 1 tablet by mouth every night Active VITAMIN D, CHOLECALCIFEROL, PO Comments: Patient Notes: take 1 tablet by mouth daily, tx vitamin deficiency Active nitroglycerin (NITROSTAT) 0.[address] 0.4 mg under the tongue every 5 (five) minutes if needed for chest pain Active amLODIPine (NORVASC) 5 MG tablet Take 5 mg by mouth 1 (one) time each day Active Sucroferric Oxyhydroxide (VELPHORO PO) Take by mouth Ac tive Active Problems Problem Noted Date Diagnosed Date Coronary artery disease due to calcified coronar y lesion 12/13/2023 Bipolar disorder 06/14/2020 Dependence on renal dialysis 06/14/2020 End stage renal disease 06/14/2020 Gout 06/14/2020 Schizoaffective disorder 06/14/2020 Chronic viral hepatitis C 06/13/2020 Family History Medical History Relation Comments Dementia Mother Kidney disease Sibling brother-transpla nt Relation Status Comments Father Mother Sibling Social History Tobacco Use Types Packs/Day Years Used Date Smoking Tobacco: Every Day Cigarettes Last attempted to quit: 05/31/2020 Tobacco Cessation:Ready to Q uit: Not Asked; Counseling Given: Not Answered Comments:Smoking History Info:Every day Alcohol Use Standard Drinks/Week Comments Not Currently 0 (1 standard drink = 0.6 oz pur e alcohol) Sex and Gender Information Value Date Recorded Sex Assigned at Not on file Legal Sex Male 4:54 PM EST Gender Identity Not on file Sexual Orientation Not on file Last Filed Vital Signs Vital Sign Reading Time Taken Comments Blood Pressure 119/63 12/13/2023 12:31 PM EDT Pulse 68 12/13/2023 12:31 PM EDT Temperature 36.5 ??C (97.7 ??F) 12/13/2023 12:31 PM E DT Respiratory Rate 16 12/13/2023 12:31 PM EDT Oxygen Saturation 94% 12/13/2023 12:31 PM EDT Inhaled Oxygen Concentration - - Weight 79.4 kg (175 lb) 12/13/2023 12:31 PM EDT Height 182.9 cm (6') 12/13/2023 12:31 PM EDT Body Mass Index 23.73 12/13/2023 12:31 PM EDT Plan of Treatment Health Maintenance Due Date Last Done Comments Colorectal Cancer Screening: Annual FOBT 2004 Colorectal Cancer Screening: Colonoscopy 2004 Colorectal Cancer Screening: Sigmoidoscopy 2004 Hepatitis B Vaccine (1 of 3 - Risk 3-dose series) 2015 Pneumococcal Vaccine: 65+ Ye ars (2 of 2 - PCV) 03/16/2021 03/16/2020, 07/26/2011, 01/03/2004 Influenza Vaccine (#1) 2024 0, 03/01/2020, 03/10/2019, Additional [place] [id number] MEDICARE MEDICAID [place] [facility] DUAL SNP ([id number]) Care Teams Block Stacker Relationship Specialty Start Date End Date Keira Roche MD [address] [place] [address] [place] [id number] PCP - General Internal Medicine 12/13/23
--- OUTSIDE RECORDS SUMMARY | 2024-08-26 12:44 | XMS_ITS | Encounter Summary ---
Author Organization [facility] Address [address] [place] [address] Care Team Providers Care Production Line Worker Name Role Phone KarolKeira rodriguez Primary Care Provider [phone] Encounter Details Date Type Department Care Team (Late st Contact Info) Description 05/23/2020 Orders Only [facility] [address] [place] [id number] Brandon Mcclelland MD [address] [place] [id number] Social History Tobacco Use Types Packs/Day Years Used Date Smoking Tobacco: Never Assessed Sex and Gender Information Value Date Recorded Sex Assigned at Not on file Legal Sex Male 10:36 AM EDT Gender Identity Not on file Sexual Orientation Not on file documented as of this encounter Plan of Treatment Not on file documented as of this encounter Visit Diagnoses Not on filedocumented in this encounter Additional Health Concerns Infection Onset Date Last Indicated Resolved Time R/O TB 08/08/2020 08/08/2020 08/09/2020 2:54 PM EST R/O TB 08/10/2020 08/10/2020 08/11/2020 2:27 PM EST R/O TB 08/12/2020 08/12/2020 08/13/2020 1:57 PM EST documented as of this encounter Care Teams Production Line Worker Relationship Specialty Start Date End Date Keira Roche [address] [place] [address] PCP - General Internal Medicine 04/20/20 documented as of this encounter
--- OUTSIDE RECORDS SUMMARY | 2024-08-26 12:44 | XMS_ITS | Encounter Summary ---
Author Organization [facility] Address [address] [place] [address] Care Team Providers Care Hanger Name Role Phone KaleyKeira Primary Care Provider [phone] Encounter Details Date Type Department Care Team (Late st Contact Info) Description 08/12/2020 Orders Only [facility] Nuclear Medicine [address] [place] [address] Edgar Lau MD [address] [place] [address] Social History Tobacco Use Types Packs/Day Years [...] Date Last Indicated Resolved Time R/O TB 08/12/2020 08/12/2020 08/13/2020 1:57 PM EST documented as of this encounter Care Teams Hanger Relationship Specialty Start Date End Date KaleyKeira [address] [place] [address] PCP - General Internal Medicine 04/20/20 documented as of this encounter
--- OUTSIDE RECORDS SUMMARY | 2024-08-26 12:44 | XMS_ITS | Encounter Summary ---
Author Organization [facility] Address [address] [place] [address] Care Team Providers Care Fruit Express Agent Name Role Phone KarolKeira rodriguez Primary Care Provider [phone] Encounter Details Date Type Department Care Team (Late st Contact Info) Description 05/23/2020 Orders Only [facility] Interventional Radiology [address] [place] [address] Yenifer Hirsch MD [address] [place] [address] Social History Tobacco Use Types Packs/Day Years [...] documented as of this encounter Care Teams Fruit Express Agent Relationship Specialty Start Date End Date Keira Roche [address] [place] [address] PCP - General Internal Medicine 04/20/20 documented as of this encounter
== END 2024-08-26 12:47 | disposition home or self-care (01) ==
PROVIDERS: Visit Provider Physician Assistant Surgical
DX: R60.0 Localized edema (principal)
CPT/HCPCS: 99024

== ENCOUNTER → 2024-09-05 | Outpatient (BNV) | payer OTHER, SELFPAY | PROVIDERS: Visit Provider Internal Medicine Nephrology | DX: N18.6 End stage renal disease (principal) | CPT/HCPCS: 90961 ==

== ENCOUNTER → 2024-10-06 | Outpatient (BNV) | payer OTHER, SELFPAY | PROVIDERS: Visit Provider Internal Medicine Nephrology | DX: N18.6 End stage renal disease (principal) | CPT/HCPCS: 90962 ==

== ENCOUNTER → 2024-11-05 | Outpatient (BNV) | payer OTHER, SELFPAY | PROVIDERS: Visit Provider Internal Medicine Nephrology | DX: N18.6 End stage renal disease (principal) | CPT/HCPCS: 90961 ==

== ENCOUNTER → 2025-01-05 23:59 | Outpatient (BNV) | payer OTHER, SELFPAY | PROVIDERS: Visit Provider Internal Medicine Nephrology | DX: N18.6 End stage renal disease (principal) | CPT/HCPCS: 90960 ==

== ENCOUNTER → 2025-02-05 23:59 | Outpatient (BNV) | payer OTHER, SELFPAY | PROVIDERS: Visit Provider Internal Medicine Nephrology | DX: N18.6 End stage renal disease (principal) | CPT/HCPCS: 90960 ==

== ENCOUNTER → 2025-03-08 23:59 | Outpatient (BNV) | payer OTHER, SELFPAY | PROVIDERS: Visit Provider Internal Medicine Nephrology | DX: N18.6 End stage renal disease (principal) | CPT/HCPCS: 90961 ==

== ENCOUNTER → 2025-06-07 23:59 | Outpatient (BNV) | payer OTHER, SELFPAY | PROVIDERS: Visit Provider Internal Medicine Nephrology | DX: N18.6 End stage renal disease (principal) | CPT/HCPCS: 90962 ==